=== PATIENT | male | born 1945 | race Caucasian/White ===

== ENCOUNTER 2024-05-24 06:19 | Observation (INO) ==
--- NOTE | 2024-04-15 15:38 | PAT Medication Instructions ---
Medication Instructions Date of Service April 15, 2024 Home Medications aspirin 81 mg tablet,delayed release (Adult Low Dose Aspirin) 81 mg PO QPM losartan 50 mg tablet 50 mg PO UD pantoprazole 40 mg granules delayed-release for susp in packet 40 mg PO QAM donepezil 5 mg tablet 10 mg PO QAM clobetasol 0.05 % topical cream 1 applic topical BID PRN folic acid 400 mcg tablet 0.4 mg PO QAM naproxen 500 mg tablet,delayed release 500 mg PO DAILY PRN vitamin B12 2,500 mcg-folic acid 400 mcg disintegrating tablet 2 tab PO QAM ASK your surgeon for instructions naproxen 500 mg tablet,delayed release 500 mg PO DAILY PRN ASK your prescriber and surgeon aspirin 81 mg tablet,delayed release (Adult Low Dose Aspirin) 81 mg PO QPM STOP taking 24 hours before surgery clobetasol 0.05 % topical cream 1 applic topical BID PRN DO NOT take the morning of surgery losartan 50 mg tablet 50 mg PO UD donepezil 5 mg tablet 10 mg PO QAM folic acid 400 mcg tablet 0.4 mg PO QAM vitamin B12 2,500 mcg-folic acid 400 mcg disintegrating tablet 2 tab PO QAM Take morning of surgery With a small sip of water, OTHERWISE NOTHING TO EAT OR DRINK AFTER MIDNIGHT: pantoprazole 40 mg granules delayed-release for susp in packet 40 mg PO QAM Other Notes If you have any questions please call us at [phone] or [phone] or [phone] or [phone]
--- NOTE | 2024-04-28 09:05 | Anesthesiology Consultation ---
Date of Service April 28, 2024 Assessment & Plan (1) Encounter for pre-operative examination: - Infectious disease screening: Per assessment on 04/28/24: No known recent infectious disease contacts or current infectious disease symptoms. - Outpatient joint assessment: Pt currently scheduled for inpatient pathway. If surgeon requests review for outpatient joint pathway, patient is an acceptable candidate for outpatient joint program from anesthesia standpoint pending surgeon's office assessment that patient is motivated, has good support and completes [facility] preop requirements. - Cardiology visit (03/30/24): "Patient states he has been doing well. He denies chest pain, dyspnea, orthopnea, PND, lower extremity edema, palpitations, or syncope. He is able to walk up multiple flights of steps, move heavy furniture and scrubbed for without any exertional symptoms.. Patient doing well today. He denies chest pain, dyspnea, or syncope. On clinical exam is euvolemic. He is easily able to get to more than 4 Mets of activity without any exertional symptoms.. Return to clinic in 1 year, sooner if needed." Chart Review Chart Review: Acceptable Risk for Surgery and Patient seen in Pre Admission Testing Teaching & Discussion Pre-Anesthesia Teaching/Discussion Notes: Instructed NPO after midnight before surgery,except medications with 15 cc of water. Medication instructions provided according to the PAT guidelines. History Surgery Operation Date: 05/24/24 07:00 Proposed Procedures p Right Total Knee Arthroplasty - Khoi Godoy MD Height/Weight Height: 6 ft 0.5 in Weight: 88.9 kg Allergies Allergy/AdvReac Type Severity Reaction Status Date / Time Penicillins Allergy Unknown Unknown Verified 04/14/24 13:02 bee venom protein (honey bee) Allergy Verified 04/14/24 13:02 Medications Home Medications Medication Instructions Recorded Confirmed Last Taken aspirin 81 mg tablet,delayed 81 mg PO QPM 09/24/21 04/14/24 Unknown release (Adult Low Dose Aspirin) losartan 50 mg tablet 50 mg PO UD 09/24/21 04/14/24 Unknown pantoprazole 40 mg granules 40 mg PO QAM 09/24/21 04/14/24 Unknown delayed-release for susp in packet donepezil 5 mg tablet 10 mg PO QAM 01/02/24 04/14/24 Unknown clobetasol 0.05 % topical cream 1 applic topical BID PRN Rash 04/14/24 04/14/24 Unknown folic acid 400 mcg tablet 0.4 mg PO QAM 04/14/24 04/14/24 Unknown naproxen 500 mg tablet,delayed 500 mg PO DAILY PRN Pain 04/14/24 04/14/24 Unknown release vitamin B12 2,500 mcg-folic acid 2 tab PO QAM 04/14/24 04/14/24 Unknown 400 mcg disintegrating tablet Past Medical History Medical History Cognitive changes Difficulty with remembering names/memory impairment Reason for Aricept GERD (gastroesophageal reflux disease) History of bradycardia Sinus bradycardia Follows with [facility] cardio Hx of renal calculi passed on own Hypertension Exercise / Class Metabolic Activity II 4-5 Yardwork/Stairs/Walk up hill (one FS: No CP, no SOB) Past Surgical History Surgical History History of anesthesia reaction 2 teeth "accidentally removed" with extubating at [facility] with prostate surgery, currently has implants History of arthroscopy of both knees R/L knee menisbus repair History of surgery Prostate surgery for r/t BPH Hx of appendectomy (1956) Hx of cardiac catheterization Multiple, 30+ years ago r/t positive stress test- "no findings"/no stents Hx of hernia repair Multiple, most recent left inguinal repair 02/2024 Hx of tonsillectomy (1956) Past Anesthesia History No Family Hx of Anesthesia Complications and Other (2 teeth "accidentally removed" with extubating at [facility] with prostate surgery, currently has implants) History of PONV No Hx of PONV and No Hx of Motion Sickness Social History Smoking Status: Former smoker Smoking cigarettes per day: Quit 10+ years ago Do You Dip or Chew Tobacco: No Hx Alcohol Use: Yes alcohol intake frequency: a few times a month Hx Substance Use: No substance use type: does not use Review of Systems Patient denies chest pain, shortness of breath, dyspnea on exertion, fever, chills, cough, wheezing, palpitations. Physical Exam Vital Signs BP 130/78 P 60 TEMP 97.6 SP02 98%RA RESP 16 Physical Mildly decreased cervical extension range of motion. Full TMJ range of motion. TMD 3 finger breaths Mallampati Score III Dentition: lower partial, + upper implants (including upper fronts) Lungs: clear throughout to auscultation Cardiac: regular rate and rhythm, no murmurs noted Spine: normal Carotid arteries: negative bruit Extremities: no LE edema Lab Results Anesthesia Preop Results Results Anesthesia Widget: WBC 6.71 K/ul (4.8-10.8) 04/28/24 Hgb 13.3 g/dl (14.0-18.0) L 04/28/24 Hct 40.9 % (42.0-52.0) L 04/28/24 Plt 239 K/uL (130-400) 04/28/24 Na 141 mmol/L (136-145) 04/28/24 K 4.8 mmol/L (3.5-5.1) 04/28/24 Cl 104 mmol/L (98-107) 04/28/24 CO2 32 mmol/L (21-32) 04/28/24 BUN 21 mg/dl (6-23) 04/28/24 Creat 0.92 mg/dl (0.6-1.4) 04/28/24 Glucose Level 105 mg/dl (70-99(Fasting)) H 04/28/24 PT 10.5 Seconds (9.0-12.0) 04/28/24 PTT 27 Seconds (21-31) 04/28/24 INR 1.0 (0.9-1.1) 04/28/24 Blood Type O Negative 04/28/24 Antibody Screen NEGATIVE 04/28/24 Testing Electrocardiogram Date: 04/28/24 SB at 55bpm. "Otherwise normal ECG" Chest X-Ray Date: 04/28/24 FINDINGS: No lines and tubes are seen. The cardiomediastinal silhouette is normal. The lungs are clear. No evidence of pleural effusion or pneumothorax. IMPRESSION: No acute chest disease. Echocardiogram Date: 12/13/19 LVEF 68%. Non-dilated cardiac chambers. Mild MR/TR. PASP 38mmhg. LV wall motion. Stress Test Date: 12/31/21 Type: exercise Exercise stress test is equivocal for ischemia, 0.5-1mm horizontal ST-segment depression in inferior leads. 105% MPHR. 8 METS. Cardiology stress test review/note (01/04/22): "His treadmill stress test looks fine. I was worried about sick sinus syndrome and chronotropic incompetence however this is not appear to be the case."
--- NOTE | 2024-05-20 20:29 | History & Physical Report ---
Date of Service May 20, 2024 Assessment & Plan (1) Degenerative arthritis of knee, bilateral: 79-year-old gentleman with history of bilateral knee scopes in the past with advanced right knee DJD. He is failed conservative treatment. He lives a fairly active lifestyle and having difficulty doing this. He would like to proceed with right knee replacement. Plan: Tristan taken the operating do right total knee replacement for the risks Mente this procedure explained and he understands. These include but not limited to a DVT, PE, , infection, neurovascular injury, failure relieve symptoms, need for further surgery in future, excetra. Patient understands and desires to proceed. Form consent was obtained. Will plan on DVT prophylaxis including thigh-high teds, SCDs, aspirin twice a day. He is derik plan stay in the hospital overnight discharge postoperative day 1. History of Present Illness Chief Complaint: . Bilateral knee pain and discomfort right side worse than the left. Primary Care Provider: Riley Guzamn . Mr. Baldwin is a 79-year-old long-term patient of mine who presents for follow-up of his knees. Got a long history of knee problems and we did scope both of his knees and many years ago. For the past 5 to 10 years we have been treating him conservatively with oral medicines and injections. This become less and less successful over time. Her last shots really have not helped much. He is a pretty avid skier and have more difficulty doing this. He now would like to consider surgery. The left knee is currently manageable. The right knee is with really limiting him. Allergies Allergy/AdvReac Type Severity Reaction Status Date / Time Penicillins Allergy Unknown Unknown Verified 04/14/24 13:02 bee venom protein (honey bee) Allergy Verified 04/14/24 13:02 Home Medications Medication Instructions Recorded Confirmed Type aspirin 81 mg tablet,delayed 81 mg PO QPM 09/24/21 04/14/24 History release (Adult Low Dose Aspirin) losartan 50 mg tablet 50 mg PO UD 09/24/21 04/14/24 History pantoprazole 40 mg granules 40 mg PO QAM 09/24/21 04/14/24 History delayed-release for susp in packet donepezil 5 mg tablet 10 mg PO QAM 01/02/24 04/14/24 History clobetasol 0.05 % topical cream 1 applic topical BID PRN Rash 04/14/24 04/14/24 History folic acid 400 mcg tablet 0.4 mg PO QAM 04/14/24 04/14/24 History naproxen 500 mg tablet,delayed 500 mg PO DAILY PRN Pain 04/14/24 04/14/24 History release vitamin B12 2,500 mcg-folic acid 2 tab PO QAM 04/14/24 04/14/24 History 400 mcg disintegrating tablet Past Med/Surg History Problem List Encounter for pre-operative examination Chondrocalcinosis Degenerative arthritis of knee, bilateral Medical History Hx of renal calculi passed on own History of bradycardia Sinus bradycardia Follows with [facility] cardio Cognitive changes Difficulty with remembering names/memory impairment Reason for Aricept GERD (gastroesophageal reflux disease) Hypertension Surgical History History of anesthesia reaction 2 teeth "accidentally removed" with extubating at [facility] with prostate surgery, currently has implants Hx of cardiac catheterization Multiple, 30+ years ago r/t positive stress test- "no findings"/no stents History of surgery Prostate surgery for r/t BPH History of arthroscopy of both knees R/L knee menisbus repair Hx of appendectomy (1956) Hx of hernia repair Multiple, most recent left inguinal repair 02/2024 Hx of tonsillectomy (1956) Social History Smoking Status: Former smoker Tobacco Type: Cigarettes Cigarettes Per Day: Quit 10+ years ago; Second Hand Exposure: No; Do You Dip or Chew Tobacco: No; Tobacco Cessation Education Requested by Patient: No Hx Alcohol Use: Yes Hx Substance Use: No Preferred Language: Finnish Communication Ability: Effective Bobbin Marker Required: No Beliefs That Will Affect Care: None Current Living Situation: Spouse Other Information That Helps Us Care for You: No Feels Safe at Home: Yes Safety Concerns: Feels Safe At This Time Assistive Devices: Glasses Review of Systems All systems reviewed & are unremarkable except as noted in HPI & below. Physical Exam . Physical examination is a pleasant middle-age male presents in good health. Examination of the right knee reveals well-healed portal sites. Discussed small knee effusion. Valgus alignment to the knee. Is got about a 10 degree flexion contracture and bends to about 120. There is no instability. No pain with hip motion. He is neurologically intact. Constitutional WD/WN, vitals as above Neck trachea midline, no thyromegaly Respiratory normal respiratory effort, lungs clear to auscultation Cardiovascular RRR, no murmur, no edema Gastrointestinal (Abdomen) normal bowel sounds, soft, nontender, no hepatosplenomegaly Results & Data Results & Data Laboratory Results . Diagnostic Findings . X-rays of the right knee reviewed. Shows advanced right knee DJD. He is got complete loss of his lateral joint space. Got subchondral sclerosis. He is got chondrocalcinosis. This has progressed since his previous x-rays. PG Care Time/CCT Total # of Minutes Spent Total Time Spent with Patient: Total time spent is greater than 50% in coordination of care (as documented) at patient's floor/unit and/or counseling patient: Coding Level of Care Code None Diagnoses Degenerative arthritis of knee, bilateral M17.0
--- OUTSIDE RECORDS SUMMARY | 2024-05-24 06:25 | External Medical Summary | Continuity of Care Document ---
Author Name Unknown Organization [facility], [facility] Address [address] [place] [address] Phone [phone] Care Team Providers Care Skiver Counter Name Role Phone Urology, [facility] Care Team In formation Swing Manager [phone] Gastroenterology - Gastroenterology Care Team In formation Swing Manager Unavailable Problems Active Problems Provider Date Disorder of prostate Riley Guzman JR DO On set: 05/22/2009 Gastroesophageal reflux disease Riley castro JR DO Onset: 05/22/2009 Mixed hyperlipidemia Riley Guzman JR DO On set: 05/22/2009 Benign essential hypertension Riley Guzman JR DO Onset: 05/22/2009 Dizziness and giddiness Riley Guzman JR DO Onset: 05/14/2010 Benign prostatic hyperplasia with outflow obstruction Riley Guzman JR DO Onset: 11/30/2013 Testicular hypofunction Riley Guzman JR DO Onset: 11/30/2013 Displacement of lumbar inter vertebral disc without myelopathy Riley Guzman JR DO Onset: 06/07/2014 Constipation Riley Guzman JR DO Onset: 12/13/2014 Essential hypertension Riley Guzman JR DO Onset: 06/21/2015 Primary erectile dysfunction Riley Egan DO Onset: 09/24/2018 Sick sinus syndrome Onset: Note: Document: 03/12/22 - C ardiology Consult Malaise and fatigue Riley Guzman JR DO Ons et: 01/14/2023 Social History Type Date Description Comments Sex Unknown Tobacco Use Start: Unknown End: Unknown Former Cigarette Smoker 1 Pack Daily Cigarette Use 03/10/2024 Quit - Age 55 Smoking Status Reviewed: 03/10/24 Former Cigare tte Smoker 1 Pack Daily Tobacco Use Reviewed: 03/10/24 Never Smoked Cigars Tobacco Use Reviewed: 03/10/24 Never Smoked A Pipe Smokeless Tobacco 03/10/2024 Never Used Smokeless To bacco ETOH Use Occasionally con sumes alcohol Exercise Type/Frequency 07/04/2020 Exercises regular ly Allergies and adverse reactions Active Allergies Criticality Reaction | Severity Comments Date Penicillin Unable to assess criticality unsure of reaction 04/24/2005 Flomax Unable to assess criticality chest discomfort and chest pain 08/09/2015 Beestings Unable to assess criticality Anaphalxysis | Severe 11/18/2023 Medications Active Medications SIG Qnty Indications Order ing Provider Date Clobetasol Propionate0.05% Cream rub in sparingly twice a day 60gm L20.9 Riley Guzman JR, DO 03/10/2024 Mupirocin2% Ointment apply small amount to affected area twice a day until healed 22gm Riley Guzman JR, DO 03/10/2024 Fluticasone Qyrgbpfokg68aty/Act Suspension 2 sprays in each nostril every night at bedtime 16gm H68.003 Riley Guzman JR, DO 04/20/[address] take 1 tablet by mouth once daily 90tabs K21.9 Riley Guzman JR, DO 04/27/2015 [id number] Tablets 1 by mouth twice a day with food 180tabs Riley Guzman JR, DO 04/12/2014 Losartan Bwxnxfvbo99pd Tablets take 1 1/2 tablet by mouth daily 135tabs I10 Riley Guzman JR, DO 09/28/2013 Epipen 2-Pak0.3mg/0.3ML Solution Auto-Inject use as directed 1units Riley Guzman JR, DO 03/18/[address] 1 po qd OTC Unknown Donepezil HCL5mg Tablets 1 tablet daily F03.90 Unknown History Medications Oxycodone HCL5mg Tablets Take 1 Tablet by mouth every 6 hours as needed (Severe) for up to 3 days. Elijah Diaz 02/10/2024 - 02/14/2024 Sulfamethoxazole/T rimethoprim [id number] Tablets 1 tablet twice daily x7 days 14tabs L03.031 PATRICIA Weems 02/06/2024 - 02/13/2024 Medications Administered in Office Medication SIG Qnty Indications Ordering Provider Date Injection Methylprednisolone Acetate 20 MGInjection Riley Guzman JR, DO 05/24/2019 Injection Methylprednisolone Acetate 20 MGInjection Riley Guzman JR, DO 10/15/2011 Injection Methylprednisolone Acetate 20 MGInjection Riley Guzman JR, DO 02/19/2007 Injection Diphenhydramine Hc i To 50 MGInjection Khoi Solano PA-C 04/22/2003 Immunizations CPT Code Status Date Vaccine Lot # [id number] Given 05/07/2023 Influenza Vaccine High Do se 0.5ML Age 65 & > [id number] Given 08/07/2022 Moderna Sars-Co v-2 (Covid-19) Vaccine, BiValent Booster 12y+ 01533 Given 06/03/2022 Influenza Vaccine High Do se 0.5ML Age 65 & > 98548 Given 01/02/2022 Moderna Sars-Co v-2 (Covid-19) Vaccine, BiValent Booster 12y+ 54014 Given 09/05/2021 Moderna Covid-1 9 Vaccine 50mcg Booster-EMR Doc Only 33759 Given 06/08/2021 Influenza Vaccine High Do se 0.5ML Age 65 & > 13196 Given 10/17/2020 Moderna Sars-Co v-2 (Cov-19) vacc,100 mcg/ 0.5 mL 12Y+EMR Doc Only 77298 Given 10/17/2020 Moderna Sars-Co v-2 (Cov-19) vacc,100 mcg/ 0.5 mL 12Y+EMR Doc Only 29025 Given 09/19/2020 Moderna Sars-Co v-2 (Cov-19) vacc,100 mcg/ 0.5 mL 12Y+EMR Doc Only 57969 Given 06/01/2020 Influenza Vaccine High Do se 0.5ML Age 65 & > [id number] 31377 Given 05/25/2019 Shingrix 84542 Given 04/20/2019 Influenza Vacci ne, Inactivated, Subunit, Adjuvanted, For [facility] [id number] 02091 Given 11/09/2018 Shingrix 91067 Given 05/19/2018 Influenza Vac, Split, Preservative Free High Dose Age 65 & > [id number] 67800 Given 06/04/2017 Influenza Vac, Split, Preservative Free High Dose Age 65 & > [id number] 76011 Given 04/30/2017 Hep A Vac Adult Dose [id number] 38399 Given 07/15/2016 Influenza Virus Vaccine, Quadrivalent, Im Use [id number] 70202 Given 05/31/2015 Pneumococcal Conjugate-Pr evnar 13 [id number] 66367 Given 05/24/2015 Influenza Vac, Split, Preservative Free High Dose Age 65 & > [id number] 21305 Given 06/07/2014 Influenza Vac, Split, Preservative Free High Dose Age 65 & > [id number] 54460 Given 08/16/2013 Pneumococcal Vaccine/Pneu movax 23 [id number] 88069 Given 05/25/2013 Influenza Vac, Split, Preservative Free High Dose Age 65 & > [id number] 20019 Given 05/19/2012 Zostavax-PT Supplied [id number] 92632 Given 05/12/2012 Influenza Vac, Split, Preservative Free High Dose Age 65 & > [id number] 18474 Given 05/20/2011 Tdap (Tetanus, diphtheria & acel. pertussis) Adacel or Boostrix [id number] 20449 Given 05/20/2011 Influenza Vac, Split 6 Mo nths And Older [id number] 94139 Given 05/14/2010 Influenza Vac, Split 6 Mo nths And Older [id number] 53656 Given 05/22/2009 Influenza Vac, Split 6 Mo nths And Older [id number] 57564 Refused 06/29/2020 Influenza Vaccine High Do se 0.5ML Age 65 & > Vital Signs Date Vital Result Comment 03/10/2024 2:00pm BP Systolic 112 mmHg BP Diastolic 64 mmHg Body Temperature 97.7 F Heart Rate 60 /min Respiratory Rate 16 /min Weight 196.00 lb Weight 88.906 kg 02/06/2024 8:19am BP Systolic 130 mmHg BP Diastolic 60 mmHg Body Temperature 97.6 F Heart Rate 60 /min Respiratory Rate 16 /min Weight 195.38 lb Weight 88.622 kg Height 72 inches 6'0" BMI (Body Mass Index) 26.5 kg/m2 [place] Body Weight 178 lb Results Test Acquired Date Facility Test Result H/L Range Note Lipid 03/03/2024 [facility] [address] [place], [place] [id number] [phone] Cholesterol 136 mg/dL 0-200 1, 2 Triglyceride 69 mg/dL 0-150 3 HDLD 45 mg/dL See Comment 4 Measured LDL 97 mg/dL 0-130 5 Calc VLDL 13.8 mg/dL See Comment 6 Chol/HDL 3.0 RATIO See Comment 7 Non-HDL 91 mg/dL See Comment 8 Comp. Met 03/03/2024 [facility] [address] [place] [address] [phone] Glucose 98 mg/dL 70-110 BUN 24 mg/dL 6-25 Creatinine 1.0 mg/dL 0.7-1.3 Sodium 143 mEq/L 135-145 Potassium 4.4 mEq/L 3.5-5.0 Chloride 105 mEq/L 95-107 Co-2 27 mEq/L 24-31 Alk Phos 107 IU/L 43-122 Alt(SGPT) 17 IU/L 10-40 Ast(Sgot) 18 IU/L 3-42 T.Bilirubin 0.5 mg/dL 0.1-1.3 Calcium 9.4 mg/dL 8.5-10.6 Tot.Protein 6.3 g/dL 5.8-8.0 Albumin 4.0 g/dL 3.0-5.2 Globulin 2.3 g/dL 2.0-3.4 GFR 77 ML/MIN/1.7 3SQM >60 CBC W/Diff 03/03/2024 [facility] [address] [place] [address] [phone] WBC 6.3 10^3/M3 3.1-9.2 RBC 4.71 10^6/M3 4.00-5.80 HGB 13.9 GR/DL 12.5-17.5 HCT 41.7 % 37.5-52.5 MCV 88.4 CUMICR 82.6-95.8 MCH 29.5 PICOGR 27.9-32.9 MCHC 33.4 % 32.6-35.4 RDW 13.6 % 11.4-14.6 PLT 215 10^3/M3 140-350 MPV 8.5 CUMICR 7.0-10.6 %Neut 62.3 % 40.0-75.0 %Lymph 21.3 % 17.0-45.0 %[place] 11.1 % High 1.0-11.0 %Eos 4.7 % 0.0-6.0 %Baso 0.6 % 0.0-2.0 #Neut 3.9 10^3/M3 1.5-8.0 #Lymph 1.3 10^3/M3 0.8-3.2 #[place] 0.7 10^3/M3 0.0-0.8 #Eos 0.3 10^3/m3 0.0-0.4 #Baso 0.0 10^3/m3 0.0-0.2 Laboratory test finding 03/03/2024 [facility] [address] [place] [address] [phone] TSH 0.59 uIU/mL 0.50-6.00 Total Testoster 325 ng/dL 199-15 86 Psa2 0.9 ng/mL 0.0-4.0 1 FASTING 2 CHOLESTEROL Less than 200mg/dl Low risk 201-239 mg/dl Borderline risk Equal to or greater 240mg/dl High risk 3 TRIGLYCERIDES Less than 150mg/dl Normal 150-199mg/dl Borderline 200-499mg/dl High Greater than 500mg/dl Very High 4 HDL <40mg/dl Elevated Risk 41-59mg/dl Risk >=60mg/dl Least Risk 5 LDL <100mg/dl Optimal 100-129mg/dl Near Optimal 130-159mg/dl Borderline High 160-189mg/dl High >=190 Very High 6 VLDL Less than 30mg/dl Normal 7 CHOL/HDL <4.0 Optimal 4.0-5.0 Borderline >6.0 High Risk 8 NON-HDL 30mg/dl higher than LDL Target Procedures Date Code Description Status 04/27/2024 50050 Manual Environmental Protection Forester 1/> Area 15 Min Each Region Completed 04/27/2024 25728 Therapeutic Activities Direc t, Each 15 Minutes Completed 04/27/2024 24685 Therapy Proc, Neuromuscular Reeducation Of Movement Completed 04/20/2024 82837 Therapeutic Activities Direc t, Each 15 Minutes Completed 04/20/2024 44147 Therapy Proc, Neuromuscular Reeducation Of Movement Completed 04/20/2024 06131 Manual Environmental Protection Forester 1/> Area 15 Min Each Region Completed 04/19/2024 09410 Therapeutic Activities Direc t, Each 15 Minutes Completed 04/19/2024 50530 Manual Environmental Protection Forester 1/> Area 15 Min Each Region Completed 04/19/2024 29287 Therapy Proc, Neuromuscular Reeducation Of Movement Completed 04/19/2024 92190 Therapy Proc 1/> Area 15Min Ea Completed 04/16/2024 20078 Therapy Proc 1/> Area 15Min Ea Completed 04/16/2024 40056 Therapy Proc, Neuromuscular Reeducation Of Movement Completed 04/16/2024 85514 Manual Environmental Protection Forester 1/> Area 15 Min Each Region Completed 04/16/2024 51852 Therapeutic Procedure Group Completed 04/16/2024 48492 Therapeutic Activities Direc t, Each 15 Minutes Completed 04/15/2024 39808 Therapeutic Activities Direc t, Each 15 Minutes Completed 04/15/2024 50008 Manual Environmental Protection Forester 1/> Area 15 Min Each Region Completed 04/15/2024 98325 Therapy Proc, Neuromuscular Reeducation Of Movement Completed 04/12/2024 43760 Therapeutic Activities Direc t, Each 15 Minutes Completed 04/12/2024 54182 Manual Environmental Protection Forester 1/> Area 15 Min Each Region Completed 04/12/2024 45019 Therapy Proc, Neuromuscular Reeducation Of Movement Completed 04/09/2024 04831 Therapy Proc 1/> Area 15Min Ea Completed 04/09/2024 33908 Therapy Proc, Neuromuscular Reeducation Of Movement Completed 04/09/2024 06564 Therapeutic Activities Direc t, Each 15 Minutes Completed 04/09/2024 57915 Manual Environmental Protection Forester 1/> Area 15 Min Each Region Completed 04/07/2024 38470 Therapeutic Activities Direc t, Each 15 Minutes Completed 04/07/2024 55745 Manual Environmental Protection Forester 1/> Area 15 Min Each Region Completed 04/07/2024 28658 Therapy Proc, Neuromuscular Reeducation Of Movement Completed 04/05/2024 89971 Therapeutic Activities Direc t, Each 15 Minutes Completed 04/05/2024 10767 Therapeutic Procedure Group Completed 04/05/2024 59418 Manual Environmental Protection Forester 1/> Area 15 Min Each Region Completed 04/05/2024 15424 Therapy Proc, Neuromuscular Reeducation Of Movement Completed 04/02/2024 66710 Therapy Proc, Neuromuscular Reeducation Of Movement Completed 04/02/2024 46150 Therapy Proc 1/> Area 15Min Ea Completed 04/02/2024 19811 Manual Environmental Protection Forester 1/> Area 15 Min Each Region Completed 04/02/2024 79362 Therapeutic Activities Direc t, Each 15 Minutes Completed 03/31/2024 24852 Therapeutic Activities Direc t, Each 15 Minutes Completed 03/31/2024 77603 Manual Environmental Protection Forester 1/> Area 15 Min Each Region Completed 03/31/2024 09226 Therapy Proc, Neuromuscular Reeducation Of Movement Completed 03/29/2024 70917 Therapeutic Activities Direc t, Each 15 Minutes Completed 03/29/2024 65341 Manual Environmental Protection Forester 1/> Area 15 Min Each Region Completed 03/29/2024 73719 Therapy Proc, Neuromuscular Reeducation Of Movement Completed 03/29/2024 20646 Therapy Proc 1/> Area 15Min Ea Completed 03/26/2024 42301 Therapy Proc 1/> Area 15Min Ea Completed 03/26/2024 72356 Manual Environmental Protection Forester 1/> Area 15 Min Each Region Completed 03/26/2024 41153 Therapeutic Activities Direc t, Each 15 Minutes Completed 03/26/2024 74458 Therapy Proc, Neuromuscular Reeducation Of Movement Completed 03/19/2024 37565 Manual Environmental Protection Forester 1/> Area 15 Min Each Region Completed 03/19/2024 14807 Therapy Proc, Neuromuscular Reeducation Of Movement Completed 03/19/2024 47222 Therapy Proc 1/> Area 15Min Ea Completed 03/19/2024 92631 Therapeutic Activities Direc t, Each 15 Minutes Completed 03/16/2024 43849 Therapeutic Activities Direc t, Each 15 Minutes Completed 03/16/2024 17845 Manual Environmental Protection Forester 1/> Area 15 Min Each Region Completed 03/16/2024 45164 Therapy Proc, Neuromuscular Reeducation Of Movement Completed 03/15/2024 18826 Therapeutic Activities Direc t, Each 15 Minutes Completed 03/15/2024 11786 Manual Environmental Protection Forester 1/> Area 15 Min Each Region Completed 03/15/2024 00725 Therapy Proc, Neuromuscular Reeducation Of Movement Completed 03/12/2024 65422 Therapeutic Activities Direc t, Each 15 Minutes Completed 03/12/2024 70282 Therapy Proc 1/> Area 15Min Ea Completed 03/12/2024 27689 Therapy Proc, Neuromuscular Reeducation Of Movement Completed 03/12/2024 31709 Manual Environmental Protection Forester 1/> Area 15 Min Each Region Completed 03/12/2024 75865 Physical Therapy Evaluation Low Complexity Completed 03/10/2024 G9920 Scrning Perf And Negative Co mpleted 03/10/2024 G2211 Continuation of care e/m vis it add on Completed 03/10/2024 3078F PVRP Diastolic BP <80 mmHg C ompleted 03/10/2024 3074F PVRP Systolic BP <130 mmHg C ompleted 03/03/2024 27766 Venipuncture Routine Complet ed 02/12/2024 1111F D/C Medications Reconciled W/Current Medications In Outpt MR Completed 02/06/2024 78827 Therapy Proc, Neuromuscular Reeducation Of Movement Completed 02/06/2024 72481 Therapeutic Activities Direc t, Each 15 Minutes Completed 02/02/2024 00867 Therapeutic Activities Direc t, Each 15 Minutes Completed 02/02/2024 70808 Manual Environmental Protection Forester 1/> Area 15 Min Each Region Completed 02/02/2024 92395 Therapy Proc, Neuromuscular Reeducation Of Movement Completed 02/02/2024 02898 Therapy Proc 1/> Area 15Min Ea Completed 01/29/2024 41061 Therapeutic Activities Direc t, Each 15 Minutes Completed 01/29/2024 81708 Manual Environmental Protection Forester 1/> Area 15 Min Each Region Completed 01/29/2024 50827 Therapy Proc, Neuromuscular Reeducation Of Movement Completed 01/29/2024 96020 Therapy Proc 1/> Area 15Min Ea Completed 01/27/2024 10201 Therapeutic Activities Direc t, Each 15 Minutes Completed 01/27/2024 61968 Therapy Proc, Neuromuscular Reeducation Of Movement Completed 01/27/2024 98584 Manual Environmental Protection Forester 1/> Area 15 Min Each Region Completed 01/23/2024 71791 Physical Therapy Evaluation Low Complexity Completed 01/23/2024 59377 Manual Environmental Protection Forester 1/> Area 15 Min Each Region Completed 01/23/2024 20359 Therapy Proc, Neuromuscular Reeducation Of Movement Completed 01/20/2024 26522 Physical Therapy Evaluation Low Complexity Completed 01/20/2024 47181 Manual Environmental Protection Forester 1/> Area 15 Min Each Region Completed 01/20/2024 34436 Therapy Proc 1/> Area 15Min Ea Completed 11/18/2023 G2211 Continuation of care e/m vis it add on Completed 08/05/2014 [id number] Colonoscopy Completed Medical Devices Description No Information Available Encounters Type Date Location Provider Dx Diagnosis Office Visit 03/10/2024 2:00p Yoana Guzman JR, DO I10 Essential (primary) hypertension E78.2 Mixed hyperlipidemia N40.1 Benign prostatic hyp erplasia with lower urinary tract symp F03.90 Unsp dementia, unsp severity, without beh/psych/mood/anx Office Visit 02/06/2024 8:15a [facility] Theresa matthews, BSA/AML COMPLIANCE OFFICER K40.30 Unil inguinal hernia, w obst, w/o gangr, not spcf as recur L03.031 Cellulitis of right toe Office Visit 11/18/2023 9:15a Yoana Guzman JR, DO 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 Assessments Date Code Description Provider 04/27/2024 M25.561 Pain in right knee Manish Beck illiaanthony, DPT 04/27/2024 M25.562 Pain in left knee Manish M Wi lliamson, DPT 04/27/2024 R53.1 Weakness Manish Luna son, DPT 04/27/2024 R26.81 Unsteadiness on feet Manish Fraser, DPT 04/20/2024 M25.561 Pain in right knee Manish Barnard W illiamson, DPT 04/20/2024 M25.562 Pain in left knee Manish Barnard Wi lliamson, DPT 04/20/2024 R53.1 Weakness Manish Luna son, DPT 04/20/2024 R26.81 Unsteadiness on feet Manish Fraser, DPT 04/19/2024 M25.561 Pain in right knee Manish Barnard W illiamson, DPT 04/19/2024 M25.562 Pain in left knee Manish M Wi lliamson, DPT 04/19/2024 R53.1 Weakness Manish Luna son, DPT 04/19/2024 R26.81 Unsteadiness on feet Manish Fraser, DPT 04/16/2024 M25.561 Pain in right knee Akil North, DPT 04/16/2024 M25.562 Pain in left knee Akil North, DPT 04/16/2024 R53.1 Weakness Akil Johnson Phylicia castro, DPT 04/16/2024 R26.81 Unsteadiness on feet Akil Johnson Can, DPT 04/15/2024 M25.561 Pain in right knee Austin Onofre Ma claudeen, DPT 04/15/2024 M25.562 Pain in left knee Austin Reynoso sen, DPT 04/15/2024 R53.1 Weakness Austin Reynososen, DPT 04/15/2024 R26.81 Unsteadiness on feet Austin Reynososen, DPT 04/12/2024 M25.561 Pain in right knee Manish harmon, DPT 04/12/2024 M25.562 Pain in left knee Manish west, DPT 04/12/2024 R53.1 Weakness Manish Luna son, DPT 04/12/2024 R26.81 Unsteadiness on feet Manish Fraser, DPT 04/09/2024 M25.561 Pain in right knee Akil Johnson Can, DPT 04/09/2024 M25.562 Pain in left knee Akil Johnson Can, DPT 04/09/2024 R53.1 Weakness Akil Johnson Phylicia castro, DPT 04/09/2024 R26.81 Unsteadiness on feet Akil Johnson Can, DPT 04/07/2024 M25.561 Pain in right knee Manish harmon, DPT 04/07/2024 M25.562 Pain in left knee Manish Shearer lliaanthony, DPT 04/07/2024 R53.1 Weakness Manish Luna son, DPT 04/07/2024 R26.81 Unsteadiness on feet Manish Fraser, DPT 04/05/2024 M25.561 Pain in right knee Akil Johnson Can, DPT 04/05/2024 M25.562 Pain in left knee Akil Johnson Can, DPT 04/05/2024 R53.1 Weakness Akil castro, DPT 04/05/2024 R26.81 Unsteadiness on feet Akil Johnson Can, DPT 04/02/2024 M25.561 Pain in right knee Palmerla M W illiaanthony, DPT 04/02/2024 M25.562 Pain in left knee Kahla M Wi lliaanthony, DPT 04/02/2024 R53.1 Weakness Manish Luna son, DPT 04/02/2024 R26.81 Unsteadiness on feet Manish Fraser, DPT 03/31/2024 M25.561 Pain in right knee Palmerla M W brookiaanthony, DPT 03/31/2024 M25.562 Pain in left knee Manish M Janki lliaanthony, DPT 03/31/2024 R53.1 Weakness Manish Luna son, DPT 03/31/2024 R26.81 Unsteadiness on feet Manish Fraser, DPT 03/29/2024 M25.561 Pain in right knee Palmerla M W eden, DPT 03/29/2024 M25.562 Pain in left knee Palmerla M Janki lliaanthony, DPT 03/29/2024 R53.1 Weakness Manish Luna son, DPT 03/29/2024 R26.81 Unsteadiness on feet Manish Fraser, DPT 03/26/2024 M25.561 Pain in right knee Palmerla M W eden, DPT 03/26/2024 M25.562 Pain in left knee Manish M Janki lliaanthony, DPT 03/26/2024 R53.1 Weakness Manish Luna son, DPT 03/26/2024 R26.81 Unsteadiness on feet Manish Fraser, DPT 03/19/2024 M25.561 Pain in right knee Akil Johnson Can, DPT 03/19/2024 M25.562 Pain in left knee Akil Johnson Can, DPT 03/19/2024 R53.1 Weakness Akil Alex castro, DPT 03/19/2024 R26.81 Unsteadiness on feet Akil Johnson Can, DPT 03/16/2024 M25.561 Pain in right knee Manish harmon, DPT 03/16/2024 M25.562 Pain in left knee Manish west, DPT 03/16/2024 R53.1 Weakness Manish Luna son, DPT 03/16/2024 R26.81 Unsteadiness on feet Manish Fraser, DPT 03/15/2024 M25.561 Pain in right knee Austin Onofre Ruth arceen, DPT 03/15/2024 M25.562 Pain in left knee Austin Reynoso sen, DPT 03/15/2024 R53.1 Weakness Austin Reynososen, DPT 03/15/2024 R26.81 Unsteadiness on feet Austin Reynososen, DPT 03/12/2024 M25.561 Pain in right knee Manish harmon, DPT 03/12/2024 M25.562 Pain in left knee Manish west, DPT 03/12/2024 R53.1 Weakness Manish Luna son, DPT 03/12/2024 R26.81 Unsteadiness on feet Manish Fraser, DPT 03/10/2024 I10 Essential (primary) hyperten donal Riley Guzman JR, DO 03/10/2024 E78.2 Mixed hyperlipidemia Riley Guzman JR, DO 03/10/2024 N40.1 Benign prostatic hyperplasia with lower urinary tract symptoms Riley Guzman JR, DO 03/10/2024 F03.90 Dementia NOS Riley johnson JR, DO 03/03/2024 I10 Essential (primary) hyperten donal Riley Guzman JR, DO 03/03/2024 I10 Essential (primary) hyperten donal [facility] - [facility] 03/03/2024 E29.1 Testicular hypofunction Anil Guzman JR, DO 03/03/2024 E78.2 Mixed hyperlipidemia Lab - [place] 03/03/2024 N40.1 Benign prostatic hyperplasia with lower urinary tract symptoms Riley Guzman JR, DO 03/03/2024 E29.1 Testicular hypofunction Lab - [facility] 03/03/2024 N40.1 Benign prostatic hyperplasia with lower urinary tract symptoms Lab - [facility] 02/06/2024 K40.30 Unilateral ingui nal hernia, with obstruction, without gangrene, not specified as recurrent Theresa Kimberly, BSA/AML COMPLIANCE OFFICER 02/06/2024 L03.031 Cellulitis of right toe Carmen danny Kimberly, BSA/AML COMPLIANCE OFFICER 02/06/2024 M25.561 Pain in right knee Akil Johnson Can, DPT 02/06/2024 M25.562 Pain in left knee Akil Johnson Can, DPT 02/06/2024 R53.1 Weakness Akil Johnson Phylicia castro, DPT 02/06/2024 R26.81 Unsteadiness on feet Akil Johnson Can, DPT 02/02/2024 M25.561 Pain in right knee Manish Beck illlizz, DPT 02/02/2024 M25.562 Pain in left knee Manish M Wi lliamson, DPT 02/02/2024 R53.1 Weakness Manish Luna son, DPT 02/02/2024 R26.81 Unsteadiness on feet Manish Fraser, DPT 01/29/2024 M25.561 Pain in right knee Manish Beck illiaanthony, DPT 01/29/2024 M25.562 Pain in left knee Manish M Wi lliamson, DPT 01/29/2024 R53.1 Weakness Manish Luna son, DPT 01/29/2024 R26.81 Unsteadiness on feet Manish Fraser, DPT 01/27/2024 M25.561 Pain in right knee Manish Beck illiaon, DPT 01/27/2024 M25.562 Pain in left knee Manish M Wi lliamson, DPT 01/27/2024 R53.1 Weakness Manish Luna son, DPT 01/27/2024 R26.81 Unsteadiness on feet Manish Fraser, DPT 01/23/2024 R26.81 Unsteadiness on feet Manish Fraser, DPT 01/23/2024 M25.561 Pain in right knee Manish harmon, DPT 01/23/2024 M25.562 Pain in left knee Manish west, DPT 01/23/2024 R53.1 Weakness Manish turner, DPT 01/20/2024 M25.561 Pain in right knee Manish harmon, DPT 01/20/2024 M25.562 Pain in left knee Manish west, DPT 01/20/2024 R53.1 Weakness Manish turner, DPT 11/18/2023 G47.01 Insomnia due to medical cond ition Riley Guzman JR DO Plan of Treatment Future Appointment(s):* 09/20/2024 10:00 am - Riley Guzman JR, DO at [facility] * 09/13/2024 7:30 am - [facility] Functional Status Description No Information Available Mental Status Description No Information Available Referrals Refer to Dr Reason for Referral Status Appt [facility] Closed 02/13/20 24 [address] [place] [address] [phone]
--- OUTSIDE RECORDS SUMMARY | 2024-05-24 06:25 | External Medical Summary | Summary of Care ---
Author Name Unknown Organization [facility] Address [address] [place] [address] Phone [phone] Care Team Providers Care Newborn Hearing Screener Name Role Phone Thomas Hahn DO Riley Primary Care Provider [phone] Reason for Visit * Reason Onset Date Comments Test Results 04/27/2024 Encounter Details Date Type Department Care Team (Late st Contact Info) Description 04/27/2024 [address]phone [address] [place] [address] Autumn Alvarado CRNP [address] [place] [address] Test Results Allergies Active Allergy Reactions Criticality Noted Date Comments Bee Venom Hives Medium 04/25/2005 rapid decrease in blood pressure Penicillins Hives Medium 04/25/2005 since childhood "unknown reaction" When a child Tamsulosin 12/27/2021 chest discomfort and chest pain documented as of this encounter (statuses as of 04/29/2024) Medications Medication Sig Dispensed Refills Start Date End Date Status NAPROXEN 500 MG PO TABS twice daily as needed Active LOSARTAN POTASSIUM 50 MG PO TABS 1 tab in AM and 1/2 tab in PM Active PROTONIX 40 MG PO TBEC Take 1 Tablet by mouth in the morning. Active ASPIRIN 81 MG PO TABS Take 1 Tablet by mouth in the morning. Active Donepezil HCl 10 MG Oral Tablet (Aricept) Take 1 Tablet by mouth in the morning. Take with largest meal of the day.. 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 documented as of this encounter (statuses as of 04/29/2024) Resolved Problems Problem Noted Date Diagnosed Date Resolved Date Incarcerated left inguinal hernia 02/09/2024 03/03/2024 Chest pain 12/11/2019 12/13/2019 documented as of this encounter (statuses as of 04/29/2024) Immunizations Name Administration Dates Next Due COVID-19 mRNA, LNP-s, No Pre serve, 2-Dose Series (Moderna) 08/07/2022,01/02/2022,10/17/2020,09/19 COVID-19, mRNA, LNP-s, PF, B ooster, 100mcg/0.5mg (Moderna) 08/07/2022,01/02/2022,09/05/2021 H1N1 2009 Influenza, IM 08/22/2009 HEP A - Hepatitis A (Adult > 18 yrs) 04/30/2017 Pneumococcal Conjugate Vacc, 13 Valent (Prevnar) 05/31/2015 Pneumococcal Polysaccharide PPV23 (Pneumovax) 08/16/2013,07/27/2007 Season Influenza, Quad, PF, Adjuvanted, 65+ Yrs, IM (FLUAD) 06/03/2022,06/08/2021,06/01/2020 Seasonal Influenza Virus Vac cine, Unspecified Formulation 07/27/2007 Seasonal Influenza, High Dos e, Trivalent, PF, IM (Fluzone HD) 05/19/2018,06/04/2017,05/24/2015,06/07,05/25/2013,05/12/2012 Seasonal Influenza, PF, 6 M & above, IM , (FluLaval or Fluzone) 07/15/2016 Seasonal Influenza, QUAD, wi th Preserv, 6 mons & Above, 0.5 mL, IM 07/15/2016 Seasonal Influenza, Trivalen t, (IIV3), with Preserv, (Fluzone) 05/20/2011,05/14/2010,05/22/2009 Seasonal Influenza, Trivalen t, Adjuvanted, 65+ YRS, PF, (Fluad) 04/20/2019 TDAP (age 10 and older)(Boostrix) 05/20/2011 Varicella Zoster Vaccine (Adult) 05/19/2012 Zoster Vaccine Recombinant (Shingrix) 05/25/2019 ,11/09/2018 documented as of this encounter Social History Tobacco Use Types Packs/Day Years Used Date Smoking Tobacco: Former Smokeless Tobacco: Never Comments:quit 20 years ago Alcohol Use Standard Drinks/Week Comments Yes 0 (1 standard drink = 0.6 oz pur e alcohol) occasionally AUDIT-C Answer Date Recorded Frequency of Alcohol Consumption Monthly or less 12/09/2019 Average Number of Drinks 1 or 2 020 Frequency of Binge Drinking Not on file 11/23 Personal Safety Answer Date Recorded Do you feel unsafe or have concerns for your saf ety? No 02/09/2024 Do you have concerns for you r family's safety? (Household - for ages 0-17 years) Not on file 02/09/2024 Utilities Answer Date Recorded Do you have trouble paying y our heating, water, or electric bill? No 02/09/2024 Is your family able to pay t he heat, water, or electric bill? (Household - for ages 0-17 years) Not on file 02/09/2024 Does your family have access to good internet? (Household - for ages 0-17 years) Not on file 02/09/2024 Social Connections Answer Date Recorded How often do you feel lonely or isolated from those around you? (Adult - for ages 18 years and over) Not on file 02/10/2024 Transportation Needs Answer Date Record ed READ ONLY Do you have troubl e getting a ride to medical visits or work? Never True 02/09/2024 Does your family have a hard time getting a ride to doctors visits? (Household - for ages 0-17 years) Not on file 02/09/2024 Has lack of transportation k ept you from medical appointments, meetings, work, or from getting things needed for daily living? Check all that apply. (Adult - for ages 18 years and over) Not on file 02/09/2024 Do you (or your family) have trouble finding or paying for a ride (transportation)? (Household - for ages 0-17 years) Not on file 02/09/2024 Housing Stability Answer Date Recorded Do you currently live in a s helter or have no steady place to sleep at night? (Adult - for ages 18 years and over) Not on file 02/09/2024 READ ONLY Do you think you a re at risk of becoming homeless? No 02/09/2024 Does your family worry about paying for your home or becoming homeless? (Household - for ages 0-17 years) Not on file 0 02/09/2024 Are you homeless or worried that you might be in the future? (Adult - for ages 18 years and over) Not on file Are you (or your family) audra eless or worried that you might be in the future? (Household - for ages 0-17 years) Not on file Food Insecurity Answer Date Recorded Do you need food for this week? No 02/09/2024 Are you able to get enough f ood for your family? (Household - for ages 0-17 years) Not on file 02/09/2024 Does your family need food t his week? (Household - for ages 0-17 years) Not on file 02/09/2024 Do you always have enough fo od for your family? (Household - for ages 0-17 years) Not on file 02/09/2024 Sex and Gender Information Value Date Recorded Sex Assigned at Not on file Gender Identity Not on file Sexual Orientation Not on file Job Start Date Occupation Industry Not on file Not on file Not on file documented as of this encounter Functional Status Functional Status Response Date of Assess ment Are you deaf or do you have serious difficulty h earing? No 02/09/2024 Are you blind or do you have serious difficulty seeing, even when wearing glasses? No 02/09/2024 Do you have serious difficul ty walking or climbing stairs? (5 years old or older) No 02/09/2024 Do you have difficulty dress ing or bathing? (5 years old or older) No 02/09/2024 Because of a physical, menta l, or emotional condition, do you have difficulty doing errands alone such as visiting a doctor s office or shopping? (15 years old or older) No 02/09/20 Cognitive Status Response Date of Assessm ent Because of a physical, menta l, or emotional condition, do you have serious difficulty concentrating, remembering, or making decisions? (5 years old or older) No 02/09/2024 documented as of this encounter Miscellaneous Notes * Telephone Encounter - Beverley Burrell CMA - 04/29/2024 3:08 PM EDT Patient rescheduled for next available appointment on 06/22 at 8 am. * Telephone Encounter - Autumn Alvarado CRNP - 04/29/2024 12:55 PM EDT Please scheduled patient to see me in my next available opening to further discuss testing and further treatment options. * Telephone Encounter - Beverley Burrell CMA - 04/29/2024 10:51 AM EDT LMOM advising that there is a message here from Autumn Alvarado. * Telephone Encounter - Autumn Alvarado CRNP - 04/27/2024 5:34 PM EDT Please call patient or his Itzel and let him know that I received the results of his APOE genotype testing. 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 There are 3 different types of the allele: E2, E3 and E4. E2 allele Decreases the risk of Alzheimer's disease, e3 is average risk and e4 INCREASES the risk. In addition, E4 increases the risk of complications associated with monoclonal antibody against amyloid, e.g. lecanemab infusions, including bleeding and swelling of the brain (details listed below). POTENTIALLY SERIOUS SIDE EFFECTS: Amyloid related imaging abnormality (ARIA) is a potentially serious side effect. In the clinical trial, incidents of ARIA-E (edema) occurred in 10.9 % of people who are heterozygous for Apoe e4, compared to 1.9% people on placebo. Incidents of ARIA-H (hemorrhage) occurred in 14.0 % of people who are heterozygous for Apoe e4, compared to 8.6 % people on placebo. While most people remain without symptoms from these imaging abnormalities, there is a risk of brain swelling and bleeding as you can see in people who have 1 copy of Apoe e4. This is why we need frequent MRI monitoring. ARIA usually occurs in the first 3 months of treatment (71% of cases). Common symptoms include headache, visual disturbance, and confusion. He would be at increased risk for the bleeding and swelling of the brain with the infusions. Is this something he still wanted to pursue? documented in this encounter Plan of Treatment Upcoming Encounters Date Type Department Care Team (Late st Contact Info) Description 06/10/2024 2:20 PM EDT Office Visit Sleep Disorders Medicine Kavita Cardoso [address] [place] [phone] Elena Acevedo MD [address] [place] [address] [address] [id number] 06/14/2024 7:40 AM EDT Office Visit Kavita Salazar [address] [place] [address] Alicia Ross PA-C [address] [id number] 06/22/2024 8:00 AM EDT Office Visit Neurology [address] [place] [phone] Autumn Alvarado CRNP [address] [facility] [place] [address] Scheduled Procedures Name Priority Associated Diagnoses Date/Ti me COLONOSCOPY FLEXIBLE PROXIMA L DIAGNOSTIC Recall Special screening for malignant neoplasms, colon Health Maintenance Due Date Last Done Comments Depression Screening 1959 Albumin/Creatinine Ratio 1965 Hepatitis C Screening 1965 DTap/Tdap Vaccines (2 - Td or Tdap) 05/20/2021 05/20/2011 COVID-19 Vaccine ( season) 2024 05/31/2023, 08/07/2022, 08/07/2022, Additional history exists Influenza Vaccine (FLU shot) (#1) 2024 05/07/2023, 05/06/2023, 06/11/2022, Additional history exists GFR 03/03/2025 03/03/2024, 01/23, 07/15/2023, Additional history exists Colonoscopy Discontinued 08/05/2014, 08/05/2014 Colorectal Cancer Screening Discontinued Pneumococcal Vaccine: 65+ Years Completed 05/31/2015, 08/16/2013, 07/27/2007 Zoster Vaccines Completed 05/25/2019, 10/23, 05/19/2012 Cologuard Discontinued Fecal Occult Blood Test Discontinued HPV (Gardasil) Vaccine Aged Out No lo nger eligible based on patient's age to complete this topic Hepatitis B Vaccine Aged Out No longe r eligible based on patient's age to complete this topic MENINGOCOCCAL (MENACTRA/MENVEO) Aged Out No longer eligible based on patient's age to complete this topic Sigmoidoscopy Discontinued documented as of this encounter Medical Devices Implanted Type Area Bin Operator Device Identifier Shelf Expiration Date Model / Serial / Lot Mesh [id number] Monofilament Hernia Anatomical Large Left Preshaped With Marking Polypropylene Dextile - [id number] Implanted:Qty: 1 on 02/10/2024 by Elijah Diaz MD at [facility] Mesh Left: Groin COVIDIEN 06/24/2028 [id number] / / [id number] documented as of this encounter Advance Directives * Full Code (Latest Code Status on File) Date Activated Date Inactivated Comments 02/09/2024 4:14 PM 02/10/2024 6:54 PM This order r eflects the patients wishes and were consensually agreed upon. Question Answer Comments Discussion of Advance Directives occurred with: Patient Does the patient have a Living Will? No Does the patient have Health Care Power of Attor dennys? No * Full Code Date Activated Date Inactivated Comments 12/11/2019 10:49 PM 12/13/2019 5:27 PM This order reflects the patients wishes and were consensually agreed upon. Healthcare Agents on File Name Relationship Healthcare Agent Relationshi p Communication Itzel Baldwin Spouse Emergency Contact Care Teams Newborn Hearing Screener Relationship Specialty Start Date End Date Riley Guzman Jr., DO [address] [facility] [place] [id number] PCP - General Family Medicine 01/17/21 documented as of this encounter
--- OUTSIDE RECORDS SUMMARY | 2024-05-24 06:25 | External Medical Summary | Continuity of Care Document ---
Author Name Unknown Organization [facility], [facility] Address [address] [place] [address] Phone [phone] Care Team Providers Care Syrup Mixer Helper Name Role Phone Urology, [facility] [address] Care Team In formation Warehouse Administrator [phone] Gastroenterology - Gastroenterology Care Team In formation Warehouse Administrator Unavailable Problems Active Problems Provider Date Disorder [...] 22gm Riley Guzman JR, DO 03/10/2024 Fluticasone Hrokpoibel47naj/Act Suspension 2 sprays in each nostril every night at bedtime 16gm H68.003 Riley Guzman JR, DO 04/20/[address] take 1 tablet by mouth once daily 90tabs K21.9 Riley Guzman JR, DO 04/27/2015 Ykfwwapl123gi Tablets 1 by mouth twice a day with food 180tabs Riley Guzman JR, DO 04/12/2014 Losartan Bopmizhzo41ut Tablets take 1 1/2 tablet by mouth daily 135tabs I10 Riley Guzman JR, DO 09/28/2013 Epipen 2-Pak0.3mg/0.3ML Solution Auto-Inject use as directed 1units Riley Guzman JR, DO 03/18/[address] 1 po qd OTC Unknown Donepezil HCL5mg Tablets 1 tablet daily F03.90 Unknown History Medications Oxycodone HCL5mg Tablets Take 1 Tablet by mouth every 6 hours as needed (Severe) for up to 3 days. Elijah Diaz 02/10/2024 - 02/14/2024 Sulfamethoxazole/T rimethoprim TZ235-136et Tablets 1 tablet twice daily x7 days [...] CPT Code Status Date Vaccine Lot # [id number] Given 05/07/2023 Influenza Vaccine High Do se 0.5ML Age 65 & > [id number] Given 08/07/2022 Moderna Sars-Co v-2 (Covid-19) Vaccine, BiValent Booster 12y+ 11982 Given 06/03/2022 Influenza Vaccine High Do se 0.5ML Age 65 & > 87724 Given 01/02/2022 Moderna Sars-Co v-2 (Covid-19) Vaccine, BiValent Booster 12y+ 29523 Given 09/05/2021 Moderna Covid-1 9 Vaccine 50mcg Booster-EMR Doc Only 08301 Given 06/08/2021 Influenza Vaccine High Do se 0.5ML Age 65 & > 66668 Given 10/17/2020 Moderna Sars-Co v-2 (Cov-19) vacc,100 mcg/ 0.5 mL 12Y+EMR Doc Only 98813 Given 10/17/2020 Moderna Sars-Co v-2 (Cov-19) vacc,100 mcg/ 0.5 mL 12Y+EMR Doc Only 74806 Given 09/19/2020 Moderna Sars-Co v-2 (Cov-19) vacc,100 mcg/ 0.5 mL 12Y+EMR Doc Only 36096 Given 06/01/2020 Influenza Vaccine High Do se 0.5ML Age 65 & > [id number] 20843 Given 05/25/2019 Shingrix 66345 Given 04/20/2019 Influenza Vacci ne, Inactivated, Subunit, Adjuvanted, [place] [facility] [place] [facility] [place] [id number] 67347 Given 11/09/2018 Shingrix 89675 Given 05/19/2018 Influenza Vac, Split, Preservative Free High Dose Age 65 & > [id number] 73766 Given 06/04/2017 Influenza Vac, Split, Preservative Free High Dose Age 65 & > [id number] 89972 Given 04/30/2017 Hep A Vac Adult Dose [id number] 72818 Given 07/15/2016 Influenza Virus Vaccine, Quadrivalent, Im Use [id number] 14269 Given 05/31/2015 Pneumococcal Conjugate-Pr evnar 13 [id number] 54527 Given 05/24/2015 Influenza Vac, Split, Preservative Free High Dose Age 65 & > [id number] 04733 Given 06/07/2014 Influenza Vac, Split, Preservative Free High Dose Age 65 & > [id number] 49947 Given 08/16/2013 Pneumococcal Vaccine/Pneu movax 23 [id number] 43022 Given 05/25/2013 Influenza Vac, Split, Preservative Free High Dose Age 65 & > [id number] 67637 Given 05/19/2012 Zostavax-PT Supplied [id number] 02582 Given 05/12/2012 Influenza Vac, Split, Preservative Free High Dose Age 65 & > [id number] 35250 Given 05/20/2011 Tdap (Tetanus, diphtheria & acel. pertussis) Adacel or Boostrix [id number] 68375 Given 05/20/2011 Influenza Vac, Split 6 Mo nths And Older [id number] 42101 Given 05/14/2010 Influenza Vac, Split 6 Mo nths And Older [id number] 97973 Given 05/22/2009 Influenza Vac, Split 6 Mo nths And Older [id number] 11138 Refused 06/29/2020 Influenza Vaccine High Do se [...] 6'0" BMI (Body Mass Index) 26.5 kg/m2 [place] Body Weight 178 lb Results Test Acquired Date Facility Test Result H/L Range Note Lipid 03/03/2024 [facility] [address] [place], [place] [id number] Cholesterol 136 mg/dL 0-200 1, 2 Triglyceride 69 mg/dL 0-150 3 HDLD 45 mg/dL See Comment 4 Measured LDL 97 mg/dL 0-130 5 Calc VLDL 13.8 mg/dL See Comment 6 Chol/HDL 3.0 RATIO See Comment 7 Non-HDL 91 mg/dL See Comment 8 Comp. Met 03/03/2024 [facility] [address] [place] [address] Glucose 98 mg/dL 70-110 BUN 24 mg/dL [...] 77 ML/MIN/1.7 3SQM >60 CBC W/Diff 03/03/2024 [facility] [address] [place] [address] [phone] WBC 6.3 10^3/M3 3.1-9.2 RBC 4.71 10^6/M3 4.00-5.80 HGB 13.9 GR/DL 12.5-17.5 HCT 41.7 % 37.5-52.5 MCV 88.4 CUMICR 82.6-95.8 MCH 29.5 PICOGR 27.9-32.9 MCHC 33.4 % 32.6-35.4 RDW 13.6 % 11.4-14.6 PLT 215 10^3/M3 140-350 MPV 8.5 CUMICR 7.0-10.6 %Neut 62.3 % 40.0-75.0 %Lymph 21.3 % 17.0-45.0 %[place] 11.1 % High 1.0-11.0 %Eos 4.7 % 0.0-6.0 %Baso 0.6 % 0.0-2.0 #Neut 3.9 10^3/M3 1.5-8.0 #Lymph 1.3 10^3/M3 0.8-3.2 #[place] 0.7 10^3/M3 0.0-0.8 #Eos 0.3 10^3/m3 0.0-0.4 #Baso 0.0 10^3/m3 0.0-0.2 Laboratory test finding 03/03/2024 [facility] [address] [place] [address] TSH 0.59 uIU/mL 0.50-6.00 Total Testoster 325 [...] LDL Target Procedures Date Code Description Status 04/30/2024 74531 Manual Fitness Coordinator 1/> Area 15 Min Each Region Completed 04/30/2024 87289 Therapeutic Activities Direc t, Each 15 Minutes Completed 04/30/2024 35093 Therapy Proc, Neuromuscular Reeducation Of Movement Completed 04/29/2024 51257 Therapeutic Activities Direc t, Each 15 Minutes Completed 04/29/2024 18957 Manual Fitness Coordinator 1/> Area 15 Min Each Region Completed 04/29/2024 66840 Therapy Proc, Neuromuscular Reeducation Of Movement Completed 04/27/2024 51059 Therapeutic Activities Direc t, Each 15 Minutes Completed 04/27/2024 18610 Manual Fitness Coordinator 1/> Area 15 Min Each Region Completed 04/27/2024 83859 Therapy Proc, Neuromuscular Reeducation Of Movement Completed 04/20/2024 91031 Therapeutic Activities Direc t, Each 15 Minutes Completed 04/20/2024 07147 Manual Fitness Coordinator 1/> Area 15 Min Each Region Completed 04/20/2024 19893 Therapy Proc, Neuromuscular Reeducation Of Movement Completed 04/19/2024 57759 Therapy Proc, Neuromuscular Reeducation Of Movement Completed 04/19/2024 93869 Therapy Proc 1/> Area 15Min Ea Completed 04/19/2024 79992 Manual Fitness Coordinator 1/> Area 15 Min Each Region Completed 04/19/2024 38526 Therapeutic Activities Direc t, Each 15 Minutes Completed 04/16/2024 45883 Therapeutic Activities Direc t, Each 15 Minutes Completed 04/16/2024 99898 Therapeutic Procedure Group Completed 04/16/2024 04722 Manual Fitness Coordinator 1/> Area 15 Min Each Region Completed 04/16/2024 26966 Therapy Proc, Neuromuscular Reeducation Of Movement Completed 04/16/2024 33871 Therapy Proc 1/> Area 15Min Ea Completed 04/15/2024 09585 Therapeutic Activities Direc t, Each 15 Minutes Completed 04/15/2024 11717 Manual Fitness Coordinator 1/> Area 15 Min Each Region Completed 04/15/2024 60239 Therapy Proc, Neuromuscular Reeducation Of Movement Completed 04/12/2024 86207 Therapeutic Activities Direc t, Each 15 Minutes Completed 04/12/2024 34865 Therapy Proc, Neuromuscular Reeducation Of Movement Completed 04/12/2024 21224 Manual Fitness Coordinator 1/> Area 15 Min Each Region Completed 04/09/2024 83259 Therapeutic Activities Direc t, Each 15 Minutes Completed 04/09/2024 27897 Manual Fitness Coordinator 1/> Area 15 Min Each Region Completed 04/09/2024 92132 Therapy Proc, Neuromuscular Reeducation Of Movement Completed 04/09/2024 24358 Therapy Proc 1/> Area 15Min Ea Completed 04/07/2024 28120 Therapeutic Activities Direc t, Each 15 Minutes Completed 04/07/2024 71018 Manual Fitness Coordinator 1/> Area 15 Min Each Region Completed 04/07/2024 67061 Therapy Proc, Neuromuscular Reeducation Of Movement Completed 04/05/2024 19881 Manual Fitness Coordinator 1/> Area 15 Min Each Region Completed 04/05/2024 19765 Therapy Proc, Neuromuscular Reeducation Of Movement Completed 04/05/2024 32362 Therapeutic Procedure Group Completed 04/05/2024 57300 Therapeutic Activities Direc t, Each 15 Minutes Completed 04/02/2024 31271 Therapeutic Activities Direc t, Each 15 Minutes Completed 04/02/2024 64314 Manual Fitness Coordinator 1/> Area 15 Min Each Region Completed 04/02/2024 21309 Therapy Proc, Neuromuscular Reeducation Of Movement Completed 04/02/2024 89762 Therapy Proc 1/> Area 15Min Ea Completed 03/31/2024 69163 Therapeutic Activities Direc t, Each 15 Minutes Completed 03/31/2024 13416 Manual Fitness Coordinator 1/> Area 15 Min Each Region Completed 03/31/2024 89795 Therapy Proc, Neuromuscular Reeducation Of Movement Completed 03/29/2024 76435 Therapy Proc 1/> Area 15Min Ea Completed 03/29/2024 19481 Therapy Proc, Neuromuscular Reeducation Of Movement Completed 03/29/2024 61548 Therapeutic Activities Direc t, Each 15 Minutes Completed 03/29/2024 29829 Manual Fitness Coordinator 1/> Area 15 Min Each Region Completed 03/26/2024 19410 Therapeutic Activities Direc t, Each 15 Minutes Completed 03/26/2024 42619 Manual Fitness Coordinator 1/> Area 15 Min Each Region Completed 03/26/2024 39953 Therapy Proc, Neuromuscular Reeducation Of Movement Completed 03/26/2024 41616 Therapy Proc 1/> Area 15Min Ea Completed 03/19/2024 39484 Therapeutic Activities Direc t, Each 15 Minutes Completed 03/19/2024 48603 Manual Fitness Coordinator 1/> Area 15 Min Each Region Completed 03/19/2024 98650 Therapy Proc, Neuromuscular Reeducation Of Movement Completed 03/19/2024 32601 Therapy Proc 1/> Area 15Min Ea Completed 03/16/2024 11861 Manual Fitness Coordinator 1/> Area 15 Min Each Region Completed 03/16/2024 98096 Therapy Proc, Neuromuscular Reeducation Of Movement Completed 03/16/2024 60014 Therapeutic Activities Direc t, Each 15 Minutes Completed 03/15/2024 08735 Therapeutic Activities Direc t, Each 15 Minutes Completed 03/15/2024 75665 Manual Fitness Coordinator 1/> Area 15 Min Each Region Completed 03/15/2024 52776 Therapy Proc, Neuromuscular Reeducation Of Movement Completed 03/12/2024 92086 Therapeutic Activities Direc t, Each 15 Minutes Completed 03/12/2024 59652 Physical Therapy Evaluation Low Complexity Completed 03/12/2024 81654 Manual Fitness Coordinator 1/> Area 15 Min Each Region Completed 03/12/2024 01723 Therapy Proc, Neuromuscular Reeducation Of Movement Completed 03/12/2024 61031 Therapy Proc 1/> Area 15Min Ea Completed 03/10/2024 3074F PVRP Systolic BP <130 mmHg C ompleted 03/10/2024 3078F PVRP Diastolic BP <80 mmHg C ompleted 03/10/2024 G9920 Scrning Perf And Negative Co mpleted 03/10/2024 G2211 Continuation of care e/m vis it add on Completed 03/03/2024 97086 Venipuncture Routine Complet ed 02/12/2024 1111F D/C Medications Reconciled W/Current Medications In Outpt MR Completed 02/06/2024 54590 Therapeutic Activities Direc t, Each 15 Minutes Completed 02/06/2024 92585 Therapy Proc, Neuromuscular Reeducation Of Movement Completed 02/02/2024 34084 Therapeutic Activities Direc t, Each 15 Minutes Completed 02/02/2024 24051 Manual Fitness Coordinator 1/> Area 15 Min Each Region Completed 02/02/2024 12507 Therapy Proc, Neuromuscular Reeducation Of Movement Completed 02/02/2024 93582 Therapy Proc 1/> Area 15Min Ea Completed 01/29/2024 02200 Therapy Proc, Neuromuscular Reeducation Of Movement Completed 01/29/2024 59375 Therapy Proc 1/> Area 15Min Ea Completed 01/29/2024 88103 Manual Fitness Coordinator 1/> Area 15 Min Each Region Completed 01/29/2024 03110 Therapeutic Activities Direc t, Each 15 Minutes Completed 01/27/2024 85830 Therapeutic Activities Direc t, Each 15 Minutes Completed 01/27/2024 73172 Manual Fitness Coordinator 1/> Area 15 Min Each Region Completed 01/27/2024 06851 Therapy Proc, Neuromuscular Reeducation Of Movement Completed 01/23/2024 90657 Physical Therapy Evaluation Low Complexity Completed 01/23/2024 06220 Manual Fitness Coordinator 1/> Area 15 Min Each Region Completed 01/23/2024 61168 Therapy Proc, Neuromuscular Reeducation Of Movement Completed 01/20/2024 02830 Physical Therapy Evaluation Low Complexity Completed 01/20/2024 85127 Manual Fitness Coordinator 1/> Area 15 Min Each Region Completed 01/20/2024 84763 Therapy Proc 1/> Area 15Min Ea Completed 11/18/2023 G2211 Continuation of care e/m vis it add on Completed 08/05/2014 [id number] Colonoscopy Completed Medical Devices Description No Information Available Encounters Type Date Location Provider Dx Diagnosis Office Visit 03/10/2024 2:00p Yoana Guzman JR, DO I10 Essential (primary) hypertension E78.2 Mixed hyperlipidemia N40.1 Benign prostatic hyp erplasia with lower urinary tract symp F03.90 Unsp dementia, unsp severity, without beh/psych/mood/anx Office Visit 02/06/2024 [place] K40.30 Unil inguinal hernia, w obst, w/o gangr, not spcf as recur L03.031 Cellulitis of right toe Office Visit 11/18/2023 9:15a Yoana Guzman JR, DO 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 Assessments Date Code Description Provider 04/30/2024 M25.561 Pain in right knee Akil North, DPT 04/30/2024 M25.562 Pain in left knee Akil North, DPT 04/30/2024 R53.1 Weakness Akil castro, DPT 04/30/2024 R26.81 Unsteadiness on feet Akil North, DPT 04/29/2024 M25.561 Pain in right knee Kahla M W eden, DPT 04/29/2024 M25.562 Pain in left knee Kahla M Janki vergaraon, DPT 04/29/2024 R53.1 Weakness Manish Luna son, DPT 04/29/2024 R26.81 Unsteadiness on feet Manish Fraser, DPT 04/27/2024 M25.561 Pain in right knee Manish harmon, DPT 04/27/2024 M25.562 Pain in left knee Manish west, DPT 04/27/2024 R53.1 Weakness Manish Luna son, DPT 04/27/2024 R26.81 Unsteadiness on feet Manish Fraser, DPT 04/20/2024 M25.561 Pain in right knee Manish harmon, DPT 04/20/2024 M25.562 Pain in left knee Manish west, DPT 04/20/2024 R53.1 Weakness Manish Luna son, DPT 04/20/2024 R26.81 Unsteadiness on feet Manish Fraser, DPT 04/19/2024 M25.561 Pain in right knee Manish harmon, DPT 04/19/2024 M25.562 Pain in left knee Manish west, DPT 04/19/2024 R53.1 Weakness Manish Luna son, DPT 04/19/2024 R26.81 Unsteadiness on feet Manish Fraser, DPT 04/16/2024 M25.561 Pain in right knee Akil Johnson Can, DPT 04/16/2024 M25.562 Pain in left knee Akil T Can, DPT 04/16/2024 R53.1 Weakness Akil T Phylicia castro, DPT 04/16/2024 R26.81 Unsteadiness on feet Akil T Can, DPT 04/15/2024 M25.561 Pain in right knee Austin Kingston shin, DPT 04/15/2024 M25.562 Pain in left knee Austin traylor, DPT 04/15/2024 R53.1 Weakness Austin Crocker, DPT 04/15/2024 R26.81 Unsteadiness on feet Austin Crocker, DPT 04/12/2024 M25.561 Pain in right knee Manish harmon, DPT 04/12/2024 M25.562 Pain in left knee Manish west, DPT 04/12/2024 R53.1 Weakness Manish Luna son, DPT 04/12/2024 R26.81 Unsteadiness on feet Manish Fraser, DPT 04/09/2024 M25.561 Pain in right knee Akil North, DPT 04/09/2024 M25.562 Pain in left knee Akil Johnson Can, DPT 04/09/2024 R53.1 Weakness Akil Johnson Phylicia castro, DPT 04/09/2024 R26.81 Unsteadiness on feet Akil North, DPT 04/07/2024 M25.561 Pain in right knee Manish harmon, DPT 04/07/2024 M25.562 Pain in left knee Manish west, DPT 04/07/2024 R53.1 Weakness Manish Luna son, DPT 04/07/2024 R26.81 Unsteadiness on feet Manish Fraser, DPT 04/05/2024 M25.561 Pain in right knee Akil North, DPT 04/05/2024 M25.562 Pain in left knee Akil North, DPT 04/05/2024 R53.1 Weakness Akil Johnson Phylicia castro, DPT 04/05/2024 R26.81 Unsteadiness on feet Akil North, DPT 04/02/2024 M25.561 Pain in right knee Manish harmon, DPT 04/02/2024 M25.562 Pain in left knee Manish west, DPT 04/02/2024 R53.1 Weakness Manish Luna son, DPT 04/02/2024 R26.81 Unsteadiness on feet Manish Fraser, DPT 03/31/2024 M25.561 Pain in right knee Manish harmon, DPT 03/31/2024 M25.562 Pain in left knee Manish Shearer lllizz, DPT 03/31/2024 R53.1 Weakness Manish Luna son, DPT 03/31/2024 R26.81 Unsteadiness on feet Manish Fraser, DPT 03/29/2024 M25.561 Pain in right knee Manish harmon, DPT 03/29/2024 M25.562 Pain in left knee Manish M Janki lllizz, DPT 03/29/2024 R53.1 Weakness Manish Luna son, DPT 03/29/2024 R26.81 Unsteadiness on feet Manish Fraser, DPT 03/26/2024 M25.561 Pain in right knee Manish harmon, DPT 03/26/2024 M25.562 Pain in left knee Manish M Janki west, DPT 03/26/2024 R53.1 Weakness Manish Luna son, DPT 03/26/2024 R26.81 Unsteadiness on feet Manish Fraser, DPT 03/19/2024 M25.561 Pain in right knee Akil Johnson Can, DPT 03/19/2024 M25.562 Pain in left knee Akil Johnson Can, DPT 03/19/2024 R53.1 Weakness Akil Johnson Phylicia castro, DPT 03/19/2024 R26.81 Unsteadiness on feet Akil Johnson Can, DPT 03/16/2024 M25.561 Pain in right knee Manish harmon, DPT 03/16/2024 M25.562 Pain in left knee Manish west, DPT 03/16/2024 R53.1 Weakness Manish Luna son, DPT 03/16/2024 R26.81 Unsteadiness on feet Manish Fraser, DPT 03/15/2024 M25.561 Pain in right knee Austin Kingston shin, DPT 03/15/2024 M25.562 Pain in left knee Austin traylor, DPT 03/15/2024 R53.1 Weakness Austin Crocker, DPT 03/15/2024 R26.81 Unsteadiness on feet Austin Crocker, DPT 03/12/2024 M25.561 Pain in right knee [...] I10 Essential (primary) hyperten donal Lab - [place] 03/03/2024 E29.1 Testicular hypofunction Anil Guzman JR, DO 03/03/2024 E78.2 Mixed hyperlipidemia [place] 03/03/2024 N40.1 Benign prostatic hyperplasia with lower urinary tract symptoms Riley Guzman JR, DO 03/03/2024 E29.1 Testicular hypofunction Lab - [place] 03/03/2024 N40.1 Benign prostatic hyperplasia with lower urinary tract symptoms Lab - [place] 02/06/2024 K40.30 Unilateral ingui nal hernia, with obstruction, without gangrene, not specified as recurrent Theresa Harris, PATRICIA 02/06/2024 L03.031 Cellulitis of right toe Carmen Harris, WAITER WAITRESS 02/06/2024 M25.561 Pain in right knee Akil North, DPT 02/06/2024 M25.562 Pain in left knee Akil North, DPT 02/06/2024 R53.1 Weakness Akil castro, DPT 02/06/2024 R26.81 Unsteadiness on feet Akil North, DPT 02/02/2024 M25.561 Pain in right knee Palmerla M Ebony harmon, DPT 02/02/2024 M25.562 Pain in left knee Kahla M Janki west, DPT 02/02/2024 R53.1 Weakness Manish Luna son, DPT 02/02/2024 R26.81 Unsteadiness on feet Manish Fraser, DPT 01/29/2024 M25.561 Pain in right knee Palmerla M Ebony harmon, DPT 01/29/2024 M25.562 Pain in left knee Kahla M Janki west, DPT 01/29/2024 R53.1 Weakness Manish Luna son, DPT 01/29/2024 R26.81 Unsteadiness on feet Manish Fraser, DPT 01/27/2024 M25.561 Pain in right knee Palmerla Akil harmon, DPT 01/27/2024 M25.562 Pain in left knee Kahla M Janki west, DPT 01/27/2024 R53.1 Weakness Manish Luna son, DPT 01/27/2024 R26.81 Unsteadiness on feet Manish Fraser, DPT 01/23/2024 R26.81 Unsteadiness on feet Manish Fraser, DPT 01/23/2024 M25.561 Pain in right knee Palmerla Akil harmon, DPT 01/23/2024 M25.562 Pain in left knee Palmerla M Janki west, DPT 01/23/2024 R53.1 Weakness Manish Luna son, DPT 01/20/2024 M25.561 Pain in right knee Palmerla Akil harmon, DPT 01/20/2024 M25.562 Pain in left knee Manish west, DPT 01/20/2024 R53.1 Weakness Manish Luna son, DPT 11/18/2023 G47.01 Insomnia due to medical cond ition Riley Guzman JR, DO Plan of Treatment Future Appointment(s):* 09/20/2024 10:00 am - Riley Guzman JR, DO at [place] * 09/13/2024 7:30 am - [facility] [place] Functional Status Description No Information Available Mental Status Description No Information Available Referrals Refer to Reason for Referral Status Appt [facility] Closed 02/13/[address] [place] [phone]
--- OUTSIDE RECORDS SUMMARY | 2024-05-24 06:26 | External Medical Summary | Summary of Care ---
Author Name Unknown Organization [facility] Address [address] [place] [address] Phone [phone] Care Team Providers Care Electric Meter Tester Name Role Phone Thomas Hanh DO Riley Primary Care Provider [phone] Reason for Visit * Reason Onset Date Comments Test Results 04/27/2024 Encounter Details Date Type Department Care Team (Late st Contact Info) Description 04/27/2024 Telephone [address] [place] [phone] Autumn Alvarado CRNP [address] [place] [address] Test Results Allergies Active Allergy [...] Disorders Medicine Kavita Cardoso [address] [place] [phone] Elena Acevedo MD [address] [facility] [place], [place] [phone] 06/14/2024 7:40 AM EDT Office Visit [facility] [address] [address] Alicia Ross PA-C [address] [place] [address] 08/20/2024 9:00 AM EST Office Visit Neurology [facility] [address] [place] [address] Autumn Alvarado CRNP [address] [place] [address] Scheduled Procedures Name Priority Associated Diagnoses Date/Ti [...] this encounter Medical Devices Implanted Type Area Horticultural Manager Device Identifier Shelf Expiration Date Model / Serial / Lot Mesh [id number] Monofilament Hernia Anatomical Large Left Preshaped With Marking Polypropylene Dextile - [id number] Implanted:Qty: 1 on 02/10/2024 by Elijah Diaz MD at OR [facility] Mesh Left: Groin COVIDIEN 06/24/2028 [id number] / / [id number] documented as of this encounter Advance Directives [...] Agents on File Name Relationship Healthcare Agent [facility] Communication Itzel Baldwin Spouse Emergency Contact Care Teams Electric Meter Tester Relationship Specialty Start Date End Date Riley Guzman Jr., DO [address] [facility] [place] [phone] PCP - General Family Medicine 01/17/21 documented as of this encounter
--- OUTSIDE RECORDS SUMMARY | 2024-05-24 06:26 | External Medical Summary | Continuity of Care Document ---
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 Displacement of [...] 22gm Riley Guzman JR, DO 03/10/2024 Fluticasone Xjxbfyuixw98qce/Act Suspension 2 sprays in each nostril every night at bedtime 16gm H68.003 Riley Guzman JR, DO 04/20/[address] take 1 tablet by mouth once daily 90tabs K21.9 Riley Guzman JR, DO 04/27/2015 Sxvfveyg276bo Tablets 1 by mouth twice a day with food 180tabs Riley Guzman JR, DO 04/12/2014 Losartan Guoigyzbj60sb Tablets take 1 1/2 tablet by mouth daily 135tabs I10 Riley Guzman JR, DO 09/28/2013 Epipen 2-Pak0.3mg/0.3ML Solution Auto-Inject use as directed 1units Riley Guzman JR, DO 03/18/[address] 1 po qd OTC Unknown Donepezil HCL5mg Tablets 1 tablet daily F03.90 Unknown History Medications Oxycodone HCL5mg Tablets Take 1 Tablet by mouth every 6 hours as needed (Severe) for up to 3 days. Elijah Diaz 02/10/2024 - 02/14/2024 Sulfamethoxazole/T rimethoprim DQ481-904ml Tablets 1 tablet twice daily x7 days [...] CPT Code Status Date Vaccine Lot # [id number] Given 05/07/2023 Influenza Vaccine High Do se 0.5ML Age 65 & > [id number] Given 08/07/2022 Moderna Sars-Co v-2 (Covid-19) Vaccine, BiValent Booster 12y+ 03828 Given 06/03/2022 Influenza Vaccine High Do se 0.5ML Age 65 & > 99276 Given 01/02/2022 Moderna Sars-Co v-2 (Covid-19) Vaccine, BiValent Booster 12y+ 58372 Given 09/05/2021 Moderna Covid-1 9 Vaccine 50mcg Booster-EMR Doc Only 39014 Given 06/08/2021 Influenza Vaccine High Do se 0.5ML Age 65 & > 45413 Given 10/17/2020 Moderna Sars-Co v-2 (Cov-19) vacc,100 mcg/ 0.5 mL 12Y+EMR Doc Only 02321 Given 10/17/2020 Moderna Sars-Co v-2 (Cov-19) vacc,100 mcg/ 0.5 mL 12Y+EMR Doc Only 72344 Given 09/19/2020 Moderna Sars-Co v-2 (Cov-19) vacc,100 mcg/ 0.5 mL 12Y+EMR Doc Only 70189 Given 06/01/2020 Influenza Vaccine High Do se 0.5ML Age 65 & > [id number] 62668 Given 05/25/2019 Shingrix 38178 Given 04/20/2019 Influenza Vacci ne, Inactivated, Subunit, Adjuvanted, For [facility] [id number] 98093 Given 11/09/2018 Shingrix 35068 Given 05/19/2018 Influenza Vac, Split, Preservative Free High Dose Age 65 & > [id number] 57863 Given 06/04/2017 Influenza Vac, Split, Preservative Free High Dose Age 65 & > [id number] 70308 Given 04/30/2017 Hep A Vac Adult Dose [id number] 00893 Given 07/15/2016 Influenza Virus Vaccine, Quadrivalent, Im Use [id number] 71969 Given 05/31/2015 Pneumococcal Conjugate-Pr evnar 13 [id number] 11108 Given 05/24/2015 Influenza Vac, Split, Preservative Free High Dose Age 65 & > [id number] 04652 Given 06/07/2014 Influenza Vac, Split, Preservative Free High Dose Age 65 & > [id number] 62047 Given 08/16/2013 Pneumococcal Vaccine/Pneu movax 23 [id number] 64462 Given 05/25/2013 Influenza Vac, Split, Preservative Free High Dose Age 65 & > [id number] 02138 Given 05/19/2012 Zostavax-PT Supplied [id number] 98216 Given 05/12/2012 Influenza Vac, Split, Preservative Free High Dose Age 65 & > [id number] 43884 Given 05/20/2011 Tdap (Tetanus, diphtheria & acel. pertussis) Adacel or Boostrix [id number] 84401 Given 05/20/2011 Influenza Vac, Split 6 Mo nths And Older [id number] 63595 Given 05/14/2010 Influenza Vac, Split 6 Mo nths And Older [id number] 92886 Given 05/22/2009 Influenza Vac, Split 6 Mo nths And Older [id number] 24623 Refused 06/29/2020 Influenza Vaccine High Do se [...] 6'0" BMI (Body Mass Index) 26.5 kg/m2 [place] Body Weight 178 lb Results Test Acquired Date Facility Test Result H/L Range Note Lipid 03/03/2024 [facility] [address] [place], [place] [id number] Cholesterol 136 mg/dL 0-200 1, 2 Triglyceride 69 mg/dL 0-150 3 HDLD 45 mg/dL See Comment 4 Measured LDL 97 mg/dL 0-130 5 Calc VLDL 13.8 mg/dL See Comment 6 Chol/HDL 3.0 RATIO See Comment 7 Non-HDL 91 mg/dL See Comment 8 Comp. Met 03/03/2024 [facility] [address] [place] [address] Glucose 98 mg/dL 70-110 BUN 24 mg/dL [...] 77 ML/MIN/1.7 3SQM >60 CBC W/Diff 03/03/2024 [facility] [address] [place] [address] WBC 6.3 10^3/M3 3.1-9.2 RBC 4.71 10^6/M3 4.00-5.80 HGB 13.9 GR/DL 12.5-17.5 HCT 41.7 % 37.5-52.5 MCV 88.4 CUMICR 82.6-95.8 MCH 29.5 PICOGR 27.9-32.9 MCHC 33.4 % 32.6-35.4 RDW 13.6 % 11.4-14.6 PLT 215 10^3/M3 140-350 MPV 8.5 CUMICR 7.0-10.6 %Neut 62.3 % 40.0-75.0 %Lymph 21.3 % 17.0-45.0 %Warren 11.1 % High 1.0-11.0 %Eos 4.7 % 0.0-6.0 %Baso 0.6 % 0.0-2.0 #Neut 3.9 10^3/M3 1.5-8.0 #Lymph 1.3 10^3/M3 0.8-3.2 #Warren 0.7 10^3/M3 0.0-0.8 #Eos 0.3 10^3/m3 0.0-0.4 #Baso 0.0 10^3/m3 0.0-0.2 Laboratory test finding 03/03/2024 [facility] [address] [place] [address] TSH 0.59 uIU/mL 0.50-6.00 Total Testoster 325 [...] LDL Target Procedures Date Code Description Status 04/20/2024 92820 Manual Data Storage Specialist 1/> Area 15 Min Each Region Completed 04/20/2024 55075 Therapy Proc, Neuromuscular Reeducation Of Movement Completed 04/20/2024 95152 Therapeutic Activities Direc t, Each 15 Minutes Completed 04/19/2024 93025 Therapeutic Activities Direc t, Each 15 Minutes Completed 04/19/2024 60053 Manual Data Storage Specialist 1/> Area 15 Min Each Region Completed 04/19/2024 46275 Therapy Proc, Neuromuscular Reeducation Of Movement Completed 04/19/2024 41235 Therapy Proc 1/> Area 15Min Ea Completed 04/16/2024 00772 Therapy Proc, Neuromuscular Reeducation Of Movement Completed 04/16/2024 00661 Therapy Proc 1/> Area 15Min Ea Completed 04/16/2024 53694 Manual Data Storage Specialist 1/> Area 15 Min Each Region Completed 04/16/2024 88540 Therapeutic Procedure Group Completed 04/16/2024 35925 Therapeutic Activities Direc t, Each 15 Minutes Completed 04/15/2024 69315 Therapeutic Activities Direc t, Each 15 Minutes Completed 04/15/2024 11990 Manual Data Storage Specialist 1/> Area 15 Min Each Region Completed 04/15/2024 79451 Therapy Proc, Neuromuscular Reeducation Of Movement Completed 04/12/2024 42577 Therapeutic Activities Direc t, Each 15 Minutes Completed 04/12/2024 02685 Manual Data Storage Specialist 1/> Area 15 Min Each Region Completed 04/12/2024 45270 Therapy Proc, Neuromuscular Reeducation Of Movement Completed 04/09/2024 83236 Therapy Proc 1/> Area 15Min Ea Completed 04/09/2024 54628 Therapy Proc, Neuromuscular Reeducation Of Movement Completed 04/09/2024 12726 Manual Data Storage Specialist 1/> Area 15 Min Each Region Completed 04/09/2024 45582 Therapeutic Activities Direc t, Each 15 Minutes Completed 04/07/2024 98072 Manual Data Storage Specialist 1/> Area 15 Min Each Region Completed 04/07/2024 19349 Therapy Proc, Neuromuscular Reeducation Of Movement Completed 04/07/2024 01993 Therapeutic Activities Direc t, Each 15 Minutes Completed 04/05/2024 58436 Therapeutic Activities Direc t, Each 15 Minutes Completed 04/05/2024 41461 Therapeutic Procedure Group Completed 04/05/2024 04961 Manual Data Storage Specialist 1/> Area 15 Min Each Region Completed 04/05/2024 79980 Therapy Proc, Neuromuscular Reeducation Of Movement Completed 04/02/2024 95010 Therapy Proc, Neuromuscular Reeducation Of Movement Completed 04/02/2024 08493 Therapy Proc 1/> Area 15Min Ea Completed 04/02/2024 76903 Manual Data Storage Specialist 1/> Area 15 Min Each Region Completed 04/02/2024 13379 Therapeutic Activities Direc t, Each 15 Minutes Completed 03/31/2024 65690 Therapeutic Activities Direc t, Each 15 Minutes Completed 03/31/2024 74185 Manual Data Storage Specialist 1/> Area 15 Min Each Region Completed 03/31/2024 40542 Therapy Proc, Neuromuscular Reeducation Of Movement Completed 03/29/2024 57530 Therapeutic Activities Direc t, Each 15 Minutes Completed 03/29/2024 28563 Manual Data Storage Specialist 1/> Area 15 Min Each Region Completed 03/29/2024 32595 Therapy Proc, Neuromuscular Reeducation Of Movement Completed 03/29/2024 02102 Therapy Proc 1/> Area 15Min Ea Completed 03/26/2024 83898 Therapy Proc, Neuromuscular Reeducation Of Movement Completed 03/26/2024 04269 Therapy Proc 1/> Area 15Min Ea Completed 03/26/2024 79783 Therapeutic Activities Direc t, Each 15 Minutes Completed 03/26/2024 99690 Manual Data Storage Specialist 1/> Area 15 Min Each Region Completed 03/19/2024 44820 Manual Data Storage Specialist 1/> Area 15 Min Each Region Completed 03/19/2024 58173 Therapy Proc, Neuromuscular Reeducation Of Movement Completed 03/19/2024 40304 Therapy Proc 1/> Area 15Min Ea Completed 03/19/2024 78938 Therapeutic Activities Direc t, Each 15 Minutes Completed 03/16/2024 65246 Therapeutic Activities Direc t, Each 15 Minutes Completed 03/16/2024 28509 Manual Data Storage Specialist 1/> Area 15 Min Each Region Completed 03/16/2024 89043 Therapy Proc, Neuromuscular Reeducation Of Movement Completed 03/15/2024 43367 Therapeutic Activities Direc t, Each 15 Minutes Completed 03/15/2024 15464 Manual Data Storage Specialist 1/> Area 15 Min Each Region Completed 03/15/2024 81263 Therapy Proc, Neuromuscular Reeducation Of Movement Completed 03/12/2024 52340 Therapeutic Activities Direc t, Each 15 Minutes Completed 03/12/2024 01732 Therapy Proc 1/> Area 15Min Ea Completed 03/12/2024 58486 Therapy Proc, Neuromuscular Reeducation Of Movement Completed 03/12/2024 34120 Manual Data Storage Specialist 1/> Area 15 Min Each Region Completed 03/12/2024 18445 Physical Therapy Evaluation Low Complexity Completed 03/10/2024 G9920 Scrning Perf And Negative Co mpleted 03/10/2024 G2211 Continuation of care e/m vis it add on Completed 03/10/2024 3078F PVRP Diastolic BP <80 mmHg C ompleted 03/10/2024 3074F PVRP Systolic BP <130 mmHg C ompleted 03/03/2024 63218 Venipuncture Routine Complet ed 02/12/2024 1111F D/C Medications Reconciled W/Current Medications In Outpt MR Completed 02/06/2024 31168 Therapy Proc, Neuromuscular Reeducation Of Movement Completed 02/06/2024 65254 Therapeutic Activities Direc t, Each 15 Minutes Completed 02/02/2024 88895 Therapeutic Activities Direc t, Each 15 Minutes Completed 02/02/2024 27578 Manual Data Storage Specialist 1/> Area 15 Min Each Region Completed 02/02/2024 56959 Therapy Proc, Neuromuscular Reeducation Of Movement Completed 02/02/2024 20092 Therapy Proc 1/> Area 15Min Ea Completed 01/29/2024 62622 Therapeutic Activities Direc t, Each 15 Minutes Completed 01/29/2024 30487 Manual Data Storage Specialist 1/> Area 15 Min Each Region Completed 01/29/2024 93424 Therapy Proc, Neuromuscular Reeducation Of Movement Completed 01/29/2024 88800 Therapy Proc 1/> Area 15Min Ea Completed 01/27/2024 96322 Therapeutic Activities Direc t, Each 15 Minutes Completed 01/27/2024 79995 Therapy Proc, Neuromuscular Reeducation Of Movement Completed 01/27/2024 18641 Manual Data Storage Specialist 1/> Area 15 Min Each Region Completed 01/23/2024 61375 Physical Therapy Evaluation Low Complexity Completed 01/23/2024 69245 Manual Data Storage Specialist 1/> Area 15 Min Each Region Completed 01/23/2024 80679 Therapy Proc, Neuromuscular Reeducation Of Movement Completed 01/20/2024 27572 Physical Therapy Evaluation Low Complexity Completed 01/20/2024 67823 Manual Data Storage Specialist 1/> Area 15 Min Each Region Completed 01/20/2024 36749 Therapy Proc 1/> Area 15Min Ea Completed 11/18/2023 G2211 Continuation of care e/m vis it add on Completed 08/05/2014 29790106 Colonoscopy Completed Medical Devices Description No Information Available Encounters Type Date Location Provider Dx Diagnosis Office Visit 03/10/2024 2:00p Yoana Guzman JR, DO I10 Essential (primary) hypertension E78.2 Mixed hyperlipidemia N40.1 Benign prostatic hyp erplasia with lower urinary tract symp F03.90 Unsp dementia, unsp severity, without beh/psych/mood/anx Office Visit 02/06/2024 8[facility]a [facility] PATRICIA K40.30 Unil inguinal hernia, w obst, w/o gangr, not spcf as recur L03.031 Cellulitis of right toe Office Visit 11/18/2023 9:15a Yoana Guzman JR, DO 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 Assessments Date Code Description Provider 04/20/2024 M25.561 Pain in right knee Manish harmon, DPT 04/20/2024 M25.562 Pain in left knee Manish Shearer lllizz, DPT 04/20/2024 R53.1 Weakness Manish Luna son, DPT 04/20/2024 R26.81 Unsteadiness on feet Manish Fraser, DPT 04/19/2024 M25.561 Pain in right knee Manish harmon, DPT 04/19/2024 M25.562 Pain in left knee Manish Shearer lllizz, DPT 04/19/2024 R53.1 Weakness Manish Luna son, DPT 04/19/2024 R26.81 Unsteadiness on feet Manish Fraser, DPT 04/16/2024 M25.561 Pain in right knee Akil North, DPT 04/16/2024 M25.562 Pain in left knee Akil North, DPT 04/16/2024 R53.1 Weakness Akil castro, DPT 04/16/2024 R26.81 Unsteadiness on feet Akil North, DPT 04/15/2024 M25.561 Pain in right knee Austin shin, DPT 04/15/2024 M25.562 Pain in left knee Austin Reynoso sen, DPT 04/15/2024 R53.1 Weakness Austin Reynososen, DPT 04/15/2024 R26.81 Unsteadiness on feet Austin Crocker, DPT 04/12/2024 M25.561 Pain in right knee Manish Barnard W eden, DPT 04/12/2024 M25.562 Pain in left knee [...] Johnson Can, DPT 04/05/2024 R53.1 Weakness Akil Johnson Phylicia castro, DPT 04/05/2024 R26.81 Unsteadiness on feet Akil Johnson Can, DPT 04/02/2024 M25.561 Pain in right knee Manish Barnard W eden, DPT 04/02/2024 M25.562 Pain in left knee Manish Shearer lliaanthony, DPT 04/02/2024 R53.1 Weakness Manish Luna son, DPT 04/02/2024 R26.81 Unsteadiness on feet Manish Fraser, DPT 03/31/2024 M25.561 Pain in right knee Kahla M W eden, DPT 03/31/2024 M25.562 Pain in left knee Kahla M Janki lliaanthony, DPT 03/31/2024 R53.1 Weakness Manish Luna son, DPT 03/31/2024 R26.81 Unsteadiness on feet Manish Fraser, DPT 03/29/2024 M25.561 Pain in right knee Kahla M W eden, DPT 03/29/2024 M25.562 Pain in left knee Kahla M Janki west, DPT 03/29/2024 R53.1 Weakness Manish Luna son, DPT 03/29/2024 R26.81 Unsteadiness on feet Manish Fraser, DPT 03/26/2024 M25.561 Pain in right knee Palmerla M Ebony harmon, DPT 03/26/2024 M25.562 Pain in left knee Kahla M Janki west, DPT 03/26/2024 R53.1 Weakness Manish Luna son, DPT 03/26/2024 R26.81 Unsteadiness on feet Manish Fraser, DPT 03/19/2024 M25.561 Pain in right knee Akil Johnson Can, DPT 03/19/2024 M25.562 Pain in left knee Akil T Can, DPT 03/19/2024 R53.1 Weakness Akil T Phylicia castro, DPT 03/19/2024 R26.81 Unsteadiness on feet Akil Johnson Can, DPT 03/16/2024 M25.561 Pain in right knee Palmerla Akil harmon, DPT 03/16/2024 M25.562 Pain in left knee Palmerla M Janki west, DPT 03/16/2024 R53.1 Weakness Manish Luna son, DPT 03/16/2024 R26.81 Unsteadiness on feet Manish Fraser, DPT 03/15/2024 M25.561 Pain in right knee Austin shin, DPT 03/15/2024 M25.562 Pain in left knee Austin traylor, DPT 03/15/2024 R53.1 Weakness Austin Crocker, DPT 03/15/2024 R26.81 Unsteadiness on feet uAstin Crocker, DPT 03/12/2024 M25.561 Pain in right [...] I10 Essential (primary) hyperten donal Lab - [facility] 03/03/2024 E29.1 Testicular hypofunction nAil Guzman JR, DO 03/03/2024 E78.2 Mixed hyperlipidemia [facility] [place] 03/03/2024 N40.1 Benign prostatic hyperplasia with lower urinary tract symptoms Riley Guzman JR, DO 03/03/2024 E29.1 Testicular hypofunction Lab - [facility] 03/03/2024 N40.1 Benign prostatic hyperplasia with lower urinary tract symptoms Lab - [facility] 02/06/2024 K40.30 Unilateral ingui nal hernia, with obstruction, without gangrene, not specified as recurrent Theresa Harris, PATRICIA 02/06/2024 L03.031 Cellulitis of right toe Carmen Harris, SCHEDULING ASSISTANT 02/06/2024 M25.561 Pain in right knee Akil North, DPT 02/06/2024 M25.562 Pain in left knee Akil North, DPT 02/06/2024 R53.1 Weakness Akil Whatley gloria, DPT 02/06/2024 R26.81 Unsteadiness on feet Akil North, DPT 02/02/2024 M25.561 Pain in right knee Kahla M W illiaon, DPT 02/02/2024 M25.562 Pain in left knee Kahla M Wi lliaon, DPT 02/02/2024 R53.1 Weakness Manish Luna son, DPT 02/02/2024 R26.81 Unsteadiness on feet Manish Fraser, DPT 01/29/2024 M25.561 Pain in right knee Kahla M W illiaanthony, DPT 01/29/2024 M25.562 Pain in left knee Kahla M Janki lliaanthony, DPT 01/29/2024 R53.1 Weakness Manish Luna son, DPT 01/29/2024 R26.81 Unsteadiness on feet Manish Fraser, DPT 01/27/2024 M25.561 Pain in right knee Kahla M W illiaon, DPT 01/27/2024 M25.562 Pain in left knee Kahla M Janki lliaon, DPT 01/27/2024 R53.1 Weakness Manish Luna son, DPT 01/27/2024 R26.81 Unsteadiness on feet Manish Fraser, DPT 01/23/2024 R26.81 Unsteadiness on feet Manish Fraser, DPT 01/23/2024 M25.561 Pain in right knee Kahla M W illiaon, DPT 01/23/2024 M25.562 Pain in left knee Kahla M Janki lliaon, DPT 01/23/2024 R53.1 Weakness Manish Luna son, DPT 01/20/2024 M25.561 Pain in right knee Kahla M W illiaon, DPT 01/20/2024 M25.562 Pain in left knee Kahla M Wi lliamson, DPT 01/20/2024 R53.1 Weakness Manish Luna son, DPT 11/18/2023 G47.01 Insomnia due to medical cond ition Riley Guzman JR, Plan of Treatment Future Appointment(s):* 09/20/2024 10:00 am - Riley Guzman JR, DO at [facility] * 09/13/2024 7:30 am - [facility] Status Description No Information Available Mental Status Description No Information Available Referrals Refer to Reason for Referral Status Appt [facility] Closed 02/13/20 24 [address] [place] [address] [phone]
--- OUTSIDE RECORDS SUMMARY | 2024-05-24 06:26 | External Medical Summary | Summary of Care ---
Author Name Unknown Organization [facility] Address [address] [place] [address] Phone [phone] Care Team Providers Care Nut Sheller Machine Operator Name Role Phone Thomas Hahn DO Riley Primary Care Provider [phone] Reason for Visit * Reason Onset Date Comments Test Results 04/27/2024 Encounter Details Date Type Department Care Team (Late st Contact Info) Description 04/27/2024 Telephone [address]rology [address] [place] [address] Autumn Alvarado CRNP [address] [place] [address] Test Results Allergies Active Allergy [...] encounter Miscellaneous Notes * Telephone Encounter - Autumn Alvarado CRNP [...] PM EDT [facility] [address] [facility] [address] Elena Acevedo MD [address] [facility] [place] [address] 06/14/2024 7:40 AM EDT Office Visit Kavita Salazar [address] [place] [id number] Alicia Ross PA-C [address] [address] 08/20/2024 9:00 AM EST Office [facility] [place] [address] [facility] [address] Autumn Alvarado CRNP [address] [place], [place] [id number] Scheduled Procedures Name Priority Associated Diagnoses Date/Ti me COLONOSCOPY FLEXIBLE PROXIMA L DIAGNOSTIC Recall Special screening for malignant neoplasms, colon Health Maintenance Due Date Last Done Comments Depression Screening 1959 Albumin/Creatinine Ratio 1965 Hepatitis C Screening 1963 DTap/Tdap Vaccines (2 - Td or Tdap) 05/20/2021 05/20/2011 COVID-19 Vaccine (24 season) 2024 05/31/2023, 08/07/2022, 08/07/2022, Additional history [...] this encounter Medical Devices Implanted Type Area Construction Coordinator Device Identifier Shelf Expiration Date Model / Serial / Lot Mesh [id number] Monofilament Hernia Anatomical Large Left Preshaped With Marking Polypropylene Dextile - [id number] Implanted:Qty: 1 on 02/10/2024 by Elijah Diaz MD at OR [facility] Mesh Left: Groin COVIDIEN 06/24/2028 [id number] / / [id number] documented as of this encounter Advance Directives [...] Agents on File Name Relationship Healthcare Agent [facility] Communication Itzel Baldwin Spouse Emergency Contact Care Teams Nut Sheller Machine Operator Relationship Specialty Start Date End Date Riley Guzman Jr., DO [address] [facility] [place] [phone] PCP - General Family Medicine 01/17/21 documented as of this encounter
[2024-05-24] MEDS ORDERED: ROPIVACAINE 0.5% 5 MG/ML 30 ML VIAL ONE (06:34)
[2024-05-24] MEDS ORDERED: BUPIVACAINE 0.5 % 5 MG/1 ML PF 10ML VIAL ONE (06:34)
--- NOTE | 2024-05-24 06:42 | History & Physical Bridge Note ---
Date of Service May 24, 2024 History & Physical Bridge Note I have examined the patient, reviewed the History & Physical and in the interval since the performance of the History & Physical I have noted the following changes of clinical significance: no changes noted
[2024-05-24] MEDS: CeleBREX 200 MG CAP PO SCH (06:53)
[2024-05-24] MEDS: ACETAMINOPHEN 500 MG TAB PO SCH ×2 (06:53→15:18)
[2024-05-24] MEDS: METOCLOPRAMIDE HCL 10 MG TABLET PO SCH (06:53)
[2024-05-24] MEDS: FAMOTIDINE 20 MG TAB PO SCH (06:53)
[2024-05-24] MEDS: dexAMETHasone**PF** 10 MG/ML VIAL IV SCH (07:03)
[2024-05-24] MEDS: LR 500ML BOLUS, THEN 15ML/HR IV SCH (07:06)
[2024-05-24] MEDS ORDERED: fentaNYL citrate PF 100 MCG/2 ML VIAL ONE (07:34)
[2024-05-24] MEDS ORDERED: MIDAZOLAM HCL 1 MG/ML 2ML VIAL ONE (07:34)
[2024-05-24] MEDS ORDERED: PROPOFOL IV EMULSION 10 MG/ML 20 ML VIAL IV ONE (08:00)
[2024-05-24] MEDS ORDERED: ONDANSETRON INJ 2 MG/ML 2 ML VIAL IV PRN ×2 (08:21→14:08)
[2024-05-24] MEDS ORDERED: fentaNYL citrate PF 100 MCG/2 ML VIAL IV PRN (08:21)
[2024-05-24] MEDS ORDERED: ePHEDrine sulfate 50 MG/ML AMP IV PRN (08:21)
[2024-05-24] MEDS ORDERED: ATROPINE SULFATE 0.1 MG/ML 10ML SYR IV PRN (08:21)
[2024-05-24] MEDS: ceFAZolin 3000MG 3,000 MG/72.5 ML BAG IV SCH (09:13)
[2024-05-24] MEDS ORDERED: ePHEDrine sulfate 50 MG/5 ML SYR ONE (09:43)
[2024-05-24] MEDS: ORTHO JOINT ANESTHETIC ONE (09:49)
[2024-05-24] MEDS: ROPIV 0.5% 246mg, Ketorolac 30mg, EPINEPHrine 0.5mg in NSS INFIL SCH (09:49)
[2024-05-24] MEDS: TRANEXAMIC ACID 1,000 MG **IV Intra-op IV SCH (09:58)
--- NOTE | 2024-05-24 10:59 | Operative Report ---
PG Post Operative Report Pre & Post Diagnosis Operation Date: 05/24/24 08:50 Pre-Op Diagnosis: Right Knee Degenerative Joint Disease Post-Op Diagnosis: Right Knee Degenerative Joint Disease I identified the patient and participated in the time-out.: Yes Procedure Operation Date: 05/24/24 08:50 Actual Procedures p Right Total Knee Arthroplasty(Right) - Khoi Godoy MD Surgeon Khoi Godoy MD [employer] Kristian Glynn PA-C Estimated Blood Loss 50 Findings Consistent with Post-Op Diagnosis Operative findings were advanced right knee DJD. I did ask tensive grade 4 [id number] disease and eburnation of the entire lateral compartment. A fixed valgus deformity to his knee. Slight flexion contracture. He did have some grade 4 full-thickness cartilage loss medially and fairly advanced in the lopez llofemoral compartment as well. Moderate-sized joint effusion. Specimens Right knee sent for pathology. Anesthesia Type Spinal MAC Complications none Disposition Accompanied Patient To Recovery: No Indications Patient is a 79-year-old very active gentleman whose had a long history of bilateral knee pain and discomfort. He said both knees scoped many years ago. He has been through extensive conservative treatment over the past 10 to 15 years which became less successful particular with respect to his right knee. X-rays show advanced right knee arthritis. He elected proceed with right total knee arthroplasty. Description of Procedure Operative implants consist of: 1 Biomet Vanguard size 72.5 right posterior stabilized femoral component. 2. Biomet size 79 tibial tray. 3. 10 mm posterior stabilized polyethylene insert. 4. 34 x 8 and half all poly patella. The patient was taken to the op room, identified, placed on the operating table in the supine position. All contact areas were appropriately padded. IV antibiotics tried by anesthesia team. A spinal anesthetic and adductor canal block had been [place] in the holding area. A right thigh tent was then placed. The right lower extremity was then prepped and draped in usual sterile fashion. The right leg was elevated and exsanguinated with use of an Esmarch and a turn was placed at 300 mmHg. An anterior approach to the right knee was then performed to longitudinal incision centered over the patella. Sharp dissection was got through subcutaneous tissue down the extensor mechanism. Medial parapatellar arthrotomy incision was made. Some subperiosteal dissection was carried out medially. The fat pad was resected from Neath patella tendon. The lateral patellofemoral ligament was released. Patella subluxated laterally knee was flexed. The osteophytes taken on distal femur. The ACL and PCL were then released from the distal femur and the tibia subluxated anteriorly. The external treatment line jig was then placed on the anterior aspect of the tibia and adjusted to 14 mm medially. Proximal tibial cut was made remove about 2 to 3 mm of bone from the medial side. Tibia sized to a size 79. Attention drawn the femur. The distal femur there was a sharp drill. Intramedullary canal was suction. A right 5 degree valgus cutting guide was placed. The distal femoral cutting block was pinned in place. Distal femoral cut was made take an additional 3 mm bone off distal femur. The knee was then brought out into extension I did release the IT band in order to equalize extension gap. Great care was taken throughout the procedure to protect the peroneal nerve at all times. The knee was then flexed. The femur was then sized to a size 72.5. The 8 cutting block was pinned parallel to the epicondylar axis which was 3 degrees of external rotation. The anterior cut, anterior chamfer, posterior cut, posterior chamfer cuts were made. The box cutting guide was placed in the just slightly and the box cut was made. The knee was flexed and the remnants of the medial and lateral menisci were excised. The osteophytes taken off the posterior aspect the femur. Trial femoral component was placed. The tibia was then subluxate anteriorly. The tibial tray was pinned in Erin external rotation and the drill and stem punch were used to create defect in proximal tibia for the tibial tray. Knee was then trialed and the 10 mm insert fit most appropriately. Attention drawn the patella. The patella was cleaned of all soft tissues. Patella thickness measured 24 mm in thickness was cut down to 15. Was sized to a size 34 patella. The lug holes were drilled for 34 patella. The lateral osteophytes removed. Patella button was placed. Knee was taken through range of motion and the patella tracked nicely with no thumbs test. Attention drawn to placing permanent components. All trial components were removed. Bone plug was placed into this femur limit blood loss. Double batch [place] G cement was mixed. [employer] size 72.5 right posterior stabilized femoral component, a size 79 tibial tray, a 10 mm posterior Byce polyethylene insert, and a 34 x 8 and half all poly patella then cemented in place. The knee was brought out in full extension till cement hardened. Final cement check was then performed. Pericapsular tissues were inj ected with total 100 cc of Ortho mix. Patient did receive 1 g tranexamic acid. The tourniquet was then let down for final tourniquet time 56 minutes. Hemostasis assured with electrocautery. Extensor Meclomen closed with combination 1 PDS suture #1 Vicryl suture in [id number] fashion. Extensor Meclomen checked found to be intact through subcutaneous tissue then closed with 2 Dexon suture in a buried knot fashion skin was closed skin lui. Leg was then cleaned and dried and sterile dressing Xeroform, 4 fours, sterile cast padding, Joel bandage were applied. Patient then transferred to the recovery in stable condition. Patient tolerated the procedure well and there were no complications. Kristian Glynn, my physician membership assistant, was present for the entire procedure. His assistance was essential and required for appropriate patient positioning, prepping and draping, surgical exposure, performing the technical details of the operation, placement the implants, closure of the wound, and placement of the sterile bandage. I attest to the content of the Intraoperative Record and any orders documented therein. Any exceptions are noted below.
--- NOTE | 2024-05-24 11:40 | XRay Report ---
XR knee RT 1 or 2V routine CLINICAL HISTORY: Postoperative evaluation. COMPARISON: Right knee radiographs January 02, 2024. FINDINGS: Alignment of the total right knee arthroplasty is anatomic. There is no periprosthetic fra cture or unexpected radiopaque foreign body. There are skin lui. IMPRESSION: Expected findings following total right knee arthroplasty. ACT 112: Negative or not required by law. Electronically signed by: Salo Cunningham M.D. 05/24/2024 11:39 AM
--- NOTE | 2024-05-24 13:58 | Anesthesiology Progress Note ---
Date of Service May 24, 2024 Anesthesia Post Procedure Vital Signs Vital Signs: Temp Pulse Pulse Resp BP Pulse Ox O2 Del Method 05/24/24 13:05 98.2 F 66 14 129/63 98 Room Air 05/24/24 12:55 69 19 136/73 97 Room Air 05/24/24 12:45 59 L 14 131/75 96 Room Air 05/24/24 12:35 63 16 135/67 97 Room Air 05/24/24 12:25 61 16 132/65 97 Room Air 05/24/24 12:15 61 17 122/80 97 Room Air 05/24/24 12:05 64 21 131/67 96 Room Air 05/24/24 11:55 71 16 130/69 97 Room Air 05/24/24 11:45 97.7 F 66 16 120/67 96 Room Air 05/24/24 11:35 68 18 129/72 95 Room Air 05/24/24 11:25 78 17 124/65 96 Room Air 05/24/24 11:15 71 17 134/67 95 Room Air 05/24/24 11:05 67 18 135/70 100 Oxymask 05/24/24 10:55 96.8 F L 77 18 112/52 L 99 Oxymask 05/24/24 06:40 97.7 F 55 L 16 152/84 H 97 Room Air O2 Flow Rate 05/24/24 13:05 05/24/24 12:55 05/24/24 12:45 05/24/24 12:35 05/24/24 12:25 05/24/24 12:15 05/24/24 12:05 05/24/24 11:55 05/24/24 11:45 05/24/24 11:35 05/24/24 11:25 05/24/24 11:15 05/24/24 11:05 5 05/24/24 10:55 5 05/24/24 06:40 Pain Intensity Right Knee: Pain Intensity: 4 Transfer of Care Handoff Completed per policy Notes Mental Status: alert / awake / arousable and participated in evaluation Patient Amnestic to Procedure: Yes Nausea / Vomiting: adequately controlled Pain: adequately controlled Airway Patency, RR, SpO2: stable & adequate BP & HR: stable & adequate Hydration State: stable & adequate Neuraxial Anesthesia: was administered and sensory block is resolving Anesthetic Complications: no major complications apparent and Pt Satisfied with anesthetic care
[2024-05-24] MEDS ORDERED: CLOBETASOL PROPIONATE 0.05% CREAM 15 GM TUBE TOP PRN (14:08)
[2024-05-24] MEDS ORDERED: HYDROmorphone INJ 0.5 MG/0.5 ML SYR IV PRN (14:08)
[2024-05-24] MEDS ORDERED: ALUMINUM/MAGNESIUM SUSP 30 ML UDC PO PRN (14:08)
[2024-05-24] MEDS ORDERED: METOCLOPRAMIDE HCL INJ 5 MG/ML 2 ML VIAL IV PRN (14:08)
[2024-05-24] MEDS ORDERED: NALOXONE HCL 0.4 MG/1 ML VIAL/CARP IV PRN (14:08)
[2024-05-24] MEDS ORDERED: bisacodyL 10 MG SUPP PR PRN (14:08)
[2024-05-24] MEDS ORDERED: MAGNESIUM HYDROXIDE SUSP 30 ML UDC PO PRN (14:08)
[2024-05-24] MEDS: SODIUM CHLORIDE 0.9% 1,000 ML IV SCH (15:19)
[2024-05-24] MEDS: KETOROLAC TROMETHAMINE 15 MG/ML VIAL IV SCH (15:19)
[2024-05-24] MEDS: LOSARTAN POTASSIUM 50 MG TAB PO SCH (15:19)
[2024-05-24] MEDS: ceFAZolin 2000MG 2,000 MG/15 ML SYR IV SCH (17:38)
[2024-05-24] MEDS: TRANEXAMIC ACID / 0.7% NACL 1,000 MG/100 ML BAG IV SCH (17:40)
[2024-05-24] MEDS: ASCORBIC ACID 500 MG TAB PO SCH (17:52)
[2024-05-24] MEDS: LOSARTAN POTASSIUM 25 MG TAB PO SCH (20:23)
[2024-05-24] MEDS: ASPIRIN 81 MG ECTAB PO SCH (20:23)
[2024-05-24] MEDS: DOCUSATE SODIUM 100 MG CAP PO SCH (21:12)
[2024-05-24] MEDS: SENNA 8.6 MG TAB PO SCH ×2 (21:12→21:13)
[2024-05-24] MEDS: oxyCODONE HCL IR 5 MG TAB (IMMEDIATE RELEASE) PO PRN (23:19)
[2024-05-25] MEDS: TAMSULOSIN HCL 0.4 MG CAP PO SCH (07:19)
[2024-05-25] MEDS: PANTOprazole 40 MG TAB PO SCH (07:19)
[2024-05-25] MEDS: DONEPEZIL HCL 10 MG TAB PO SCH (07:20)
[2024-05-25] MEDS: FOLIC ACID 400 MCG TAB PO SCH (07:20)
[2024-05-25] MEDS: MULTIVITAMIN TAB PO SCH (07:20)
[2024-05-25 07:29] LABS: Hematocrit (blood only) 30.6 % (42.0-52.0); Hemoglobin 10.2 g/dl (14.0-18.0); Mean Corpuscular Hemoglobin 29.9 pg (25.0-34.0); Mean Corpuscular Hgb Conc 33.3 g/dL (32.0-36.0); Mean Corpuscular Volume 89.7 fL (80.0-100.0); Mean Platelet Volume 10.3 fL (9.4-12.4); Platelet Count 163 K/uL (130-400); RDW Coefficient of Variation 12.4 % (11.5-14.5); RDW Standard Deviation 40.7 fL (36.4-46.3); Red Blood Count 3.41 M/uL (4.70-6.10); White Blood Count 9.86 K/ul (4.8-10.8)
[2024-05-25 07:46] LABS: BUN Creatinine Ratio 24.7 (10-20); Calcium 8.6 mg/dl (8.6-10.3); Est GFR (African American) 86.9 ml/min; Potassium 4.4 mmol/L (3.5-5.1)
[2024-05-25 08:01] VITALS: BP 145/75; PULSE 63; RESP 16; TEMP 97.9; O2SAT 100
[2024-05-25] MEDS: dexAMETHasone 10 MG in SYRINGE 0 ML IV SCH (08:17)
--- NOTE | 2024-05-28 06:31 | Discharge Summary ---
Date of Service May 28, 2024 Discharge Data Procedures Performed Operation Date: 05/24/24 08:50 Actual Procedures p Right Total Knee Arthroplasty(Right) - Khoi Godoy MD Hospital Course (1) Status post total right knee replacement: This is a 79 year old patient admitted on 05/24/24 and underwent total knee arthroplasty. He tolerated the procedure well and there were no complications. T ransferred to the PACU post op and later to the orthopedic floor for further care. He was given ancef for antibiotic prophylaxis. He was also given MEDINA stockings, SCDs, and aspirin for DVT prophylaxis. Hemoglobin, hematocrit, and vital signs were monitored during his hospital stay and remained stable. Did not require any blood transfusions. There were no complications during his hospital stay. By post op day #1 the patient was tolerating a regular diet, pain was reasonably controlled with oral pain medicine, and he was participating in physical therapy. On post op day #1 the patient was discharged home and set up with home health care. He was given printed discharge instructions including prescriptions for extra strength tylenol, aspirin, cefadroxil,ketorolac, zofran, oxycodone, senokot, and flomax. Continue physical therapy, weight bearing as tolerated. Continue MEDINA stockings. Follow up approximately 2 weeks post op or sooner if there are problems or concerns. Coding Level of Care Code None Diagnoses Status post total right knee replacement Z96.651
== END 2024-05-25 10:37 | disposition home health service (06) ==
LOC: ASU 06:19 → 3W 06:19